=== PATIENT | female | born 1990 | race Hispanic/Latino ===

== ENCOUNTER 2016-11-02 16:40 | Emergency (ER) | payer MEDICAID ==
[2016-11-02 16:42] VITALS: BMI 33.6
[2016-11-02 16:51] VITALS: RESP 16; TEMP 98.1; O2SAT 97
--- NOTE | 2016-11-02 17:22 | ED PDOC ---
HPI: General Adult Time Seen by Provider: 11/02/16 17:00 Chief Complaint (Nursing): Shortness Of Breath Chief Complaint (Provider): SOB x 2 days History Per: Patient History/Exam Limitations: no limitations Onset/Duration Of Symptoms: Days (2 days), Intermittent Episodes Current Symptoms Are (Timing): Gone Now Severity: Mild Similar Symptoms Previously: no Recently: Treated By A Physician Additional History Per: Patient Additional Complaint(s): 26 y/o @ approx 20 weeks IUP, good PNC, presenting due to intermittent episodes of SOB x 2 days duration. States SOB comes and goes, same as SOB she felt in her previous . Able to speak in full sentences w/o accessory muscle use or SOB. States taking PNV, + FM, no complications with current or prior . Last OB US 10/27, no problems reported. Denies VB, LOF, vaginal discharge or trauma. Denies calf tenderness, swelling, recent long car trips, flights, h/o clotting disorders, blood clots, previous PE No FARLEY< syncope, vision changes, fevers, chills, palpitations, CP, pressure, abd pain,dysuria, hematuria, focal weakness or parasthesias. OB: Dr. Portillo ([place]) Past Medical History Vital Signs: Last Vital Signs Temp 98.1 F 11/02/16 16:44 Pulse 86 11/02/16 17:45 Resp 16 11/02/16 17:45 BP 126/79 11/02/16 17:45 Pulse Ox 97 11/02/16 18:04 - Medical History PMH: No Chronic Diseases - Surgical History Surgical History: No Surg Hx - Family History Family History: States: No Known Family Hx - Home Medications Home Medications: Ambulatory Orders Medication Instructions Recorded Amoxicillin 875 mg PO BID #14 tab 02/07/15 Ibuprofen [Motrin] 600 mg PO Q6H PRN #15 tab 02/07/15 Acetaminophen [Tylenol 325mg tab] 650 mg PO QID PRN #30 tab 07/16/16 Amoxicillin 875 mg PO BID #20 tablet 07/16/16 - Allergies Allergies/Adverse Reactions: Allergies Allergy/AdvReac Type Severity Reaction Status Date / Time No Known Allergies Allergy Verified 11/02/16 16:44 Review of Systems Constitutional: Negative for: Fever, Weakness, Malaise, Weight loss Eyes: Negative for: Pain, Vision Change ENT: Negative for: Ear Pain Cardiovascular: Negative for: Chest Pain, Palpitations, Edema, Light Headedness Respiratory: Positive for: Cough (intermittent dry cough), Shortness of Breath ( not currently present) Gastrointestinal: Negative for: Nausea, Vomiting, Abdominal Pain, Diarrhea Genitourinary Female: Positive for: Frequency. Negative for: Dysuria, Incontinence, Hematuria, Vaginal Discharge, Vaginal Bleeding, Pelvic Pain Skin: Negative for: Rash, Lesions, Jaundice, Bruising Neurological: Negative for: Weakness, Numbness, Incoordination, Confusion, Dizziness Physical Exam - Physical Exam Appears: Positive for: Non-toxic, No Acute Distress Head Exam: Positive for: ATRAUMATIC Skin: Positive for: Warm, Dry. Negative for: Diaphoresis, Pallor, Rash Eye Exam: Positive for: EOMI, PERRL ENT: Negative for: Nasal Congestion, Pharyngeal Erythema Neck: Positive for: Normal, Painless ROM, Supple Cardiovascular/Chest: Positive for: Regular Rate, Rhythm Respiratory: Positive for: Normal Breath Sounds. Negative for: Accessory Muscle Use, Rales, Rhonchi, Wheezing, Respiratory Distress Gastrointestinal/Abdominal: Positive for: Bowel Sounds, Soft (gravid abdomen, fundus roughly at 20 week maxine). Negative for: Tenderness, Mass, Distended Back: Negative for: L CVA Tenderness, R CVA Tenderness Extremity: Positive for: Normal ROM, Capillary Refill (<2s BL). Negative for: Tenderness, Pedal Edema, Calf Tenderness, Swelling Neurologic/Psych: Positive for: Alert, Oriented. Negative for: Motor/Sensory Deficits, Facial Droop - ECG O2 Sat by Pulse Oximetry: 97 - Progress ED Course And Treament: Intermittent SOB during EKG UA OB TVUS ordered but patient declined due to increased length of today's ER stay , opted to follow up with her regular OB, stating she ''felt fine'' PE: benign, no calf tenderness, swelling, erythema. Re-evaluation Time: 18:21 Condition: Re-examined, Improved Disposition - Clinical Impression Clinical Impression: Dyspnea, - Disposition [facility] Disposition Time: 18:23 Condition: FAIR Instructions: (ED)
[2016-11-02 18:18] VITALS: BP 126/79; PULSE 86
[2016-11-02 18:31] LABS: RBC URINE 4 /hpf (0-3); URINE BACTERIA RARE (<OCC); URINE BILIRUBIN NEGATIVE (NEGATIVE); URINE BLOOD NEGATIVE (NEGATIVE); URINE COLOR YELLOW (YELLOW); URINE GLUCOSE (UA) NEG (Normal); URINE KETONE 20 mg/dL (NEGATIVE); URINE LEUKOCYTE ESTERASE MOD Leu/uL (Negative); URINE PROTEIN NEGATIVE (NEGATIVE); URINE UROBILINOGEN 0.2-1.0 mg/dL (0.2-1.0); WBC URINE 16 /hpf (0-5)
== END 2016-11-02 18:13 | disposition home or self-care (01) ==
LOC: H.ER 16:40
DX: R06.02 Shortness of breath (principal); Z33.1 Pregnant state, incidental; Z3A.20 20 weeks gestation of pregnancy

== ENCOUNTER 2017-08-31 16:39 | Emergency (ER) | payer MEDICAID ==
[2017-08-31 16:39] VITALS: BMI 33.6
--- NOTE | 2017-08-31 18:50 | CT ---
PROCEDURE: CT scan of the brain dated 08/31/2017. HISTORY: Dizziness. Headache. Progressively worsening. COMPARISON: No prior study available for comparison TECHNIQUE: Axial computed tomography images were obtained through the head/brain without intravenous contrast. Radiation dose: Total exam DLP = 769.72 mGy-cm. This CT exam was performed using one or more of the following dose reduction techniques: Automated exposure control, adjustment of the mA and/or kV according to patient size, and/or use of iterative reconstruction technique. FINDINGS: HEMORRHAGE: No acute parenchymal, subarachnoid or extra-axial hemorrhage. BRAIN: No evidence of large acute infarct. No obvious parenchymal nor extra-axial mass or collection seen on this noncontrast study. Ventricular and sulcal size are within range of normal for this patient's stated age. VENTRICLES: There is mild asymmetry of the lateral ventricles left-sided which is smaller than the right felt to represent a anatomic variation. No obstructive Hydrocephalus. CALVARIUM: Calvarium intact. PARANASAL SINUSES: Frontal sinuses are slightly underpneumatized/hypoplastic. Remaining visualized paranasal sinuses well-developed and currently well-aerated. MASTOID AIR CELLS: Unremarkable as visualized. No inflammatory changes. OTHER FINDINGS: None. IMPRESSION: No acute intracranial hemorrhage.
[2017-08-31 19:12] LABS: BASO % 0.3 % (0.0-2.0); EOS # 0.1 K/uL (0.0-0.7); EOS % 0.7 % (0.0-4.0); HEMOGLOBIN 12.9 g/dL (12.0-16.0); LYMPH # 3.7 K/uL (1.0-4.3); MEAN CELL VOLUME 89.3 fl (81.0-99.0); MEAN CORPUSCULAR HEMOGLOBIN 29.7 pg (27.0-31.0); MEAN CORPUSCULAR HGB CONC 33.2 g/dL (33.0-37.0); MEAN PLATELET VOLUME 8.7 fl (7.2-11.7); MONO # 0.5 K/uL (0.0-0.8); MONO % 4.9 % (0.0-10.0); NEUT # 6.5 K/uL (1.8-7.0); NEUT % 60.1 % (50.0-75.0); NRBC % 0.1 % (0.0-0.0); RBC 4.35 Mil/uL (3.80-5.20); WHITE BLOOD COUNT 10.8 K/uL (4.8-10.8)
[2017-08-31 19:27] LABS: ALB/GLOB RATIO 1.3 (1.0-2.1); ALBUMIN 4.1 g/dL (3.5-5.0); ALT/SGPT 28 U/L (9-52); AST/SGOT 27 U/L (14-36); BLOOD UREA NITROGEN 11 mg/dl (7-17); CALCIUM 9.3 mg/dL (8.4-10.2); GFR AFRICAN-AMERICAN > 60; GFR NON-AFRICAN AMERICAN > 60
--- NOTE | 2017-08-31 19:27 | ED PDOC ---
HPI: Chest Pain Time Seen by Provider: 08/31/17 17:01 Chief Complaint (Nursing): Chest Pain Chief Complaint (Provider): Chest Pain History Per: Patient History/Exam Limitations: no limitations Current Symptoms Are (Timing): Still Present Additional Complaint(s): 27 year old female presents to the emergency department with a complaint of a weakness and lightheadedness for 2 weeks. Associated with a non vertiginous dizziness and feeling like she is not really there with difficulty concentrating. Patient also reports every other day she has a headache and chest pain which she occasionally experiences but noticed it has been more often within the last few weeks. States she had an episode of dry mouth today. Patient is concerned symptoms persistent because she initially thought it was because of fatigue due to 5 month at home. Denies focal weakness, blurry vision, and any difficulty with gait or speech. PMD: Dr. Sandie Stevenson MD (First appointment in 10 days) Past Medical History Reviewed: Historical Data, Nursing Documentation, Vital Signs Vital Signs: Last Vital Signs Temp 98.5 F 08/31/17 21:25 Pulse 83 08/31/17 21:25 Resp 16 08/31/17 21:25 BP 117/66 08/31/17 21:25 Pulse Ox 97 08/31/17 21:25 - Medical History PMH: No Chronic Diseases - Surgical History Surgical History: No Surg Hx - Family History Family History: States: CAD (Father who had open heart surgery at 44) Other Family History: mother with submental illness - Social History Current smoker - smoking cessation education provided: No Alcohol: None Drugs: Denies - Home Medications Home Medications: Ambulatory Orders Medication Instructions Recorded Amoxicillin 875 mg PO BID #14 tab 02/07/15 Ibuprofen [Motrin] 600 mg PO Q6H PRN #15 tab 02/07/15 Acetaminophen [Tylenol 325mg tab] 650 mg PO QID PRN #30 tab 07/16/16 Amoxicillin 875 mg PO BID #20 tablet 07/16/16 - Allergies Allergies/Adverse Reactions: Allergies Allergy/AdvReac Type Severity Reaction Status Date / Time No Known Allergies Allergy Verified 11/02/16 16:44 Review of Systems ROS Statement: Except As Marked, All Systems Reviewed And Found Negative (As per HPI, otherwise negative) Constitutional: Positive for: Other (Lightheadedness) Eyes: Negative for: Vision Change (blurry) Cardiovascular: Positive for: Chest Pain Neurological: Positive for: Headache, Dizziness (non vertiginous dizziness ), Other (Difficulty concentrating). Negative for: Weakness (focal), Change in Speech (or change in gait) Physical Exam - Reviewed Nursing Documentation Reviewed: Yes Vital Signs Reviewed: Yes - Physical Exam Appears: Positive for: Non-toxic, No Acute Distress Head Exam: Positive for: ATRAUMATIC, NORMOCEPHALIC Skin: Positive for: Warm, Dry Eye Exam: Positive for: EOMI, PERRL ENT: Negative for: Pharyngeal Erythema, Tonsillar Exudate Neck: Positive for: Painless ROM, Supple Cardiovascular/Chest: Positive for: Regular Rate, Rhythm, Chest Non Tender. Negative for: Murmur Respiratory: Positive for: Normal Breath Sounds. Negative for: Respiratory Distress Gastrointestinal/Abdominal: Positive for: Soft. Negative for: Tenderness Back: Positive for: Normal Inspection. Negative for: Decreased ROM Extremity: Positive for: Normal ROM. Negative for: Deformity Lymphatic: Negative for: Adenopathy Neurologic/Psych: Positive for: Alert, portable trackman II-XII (intact), Oriented (x3). Negative for: Motor/Sensory Deficits - Laboratory Results Result Diagrams: 08/31/17 19:00 08/31/17 19:00 - ECG ECG Rhythm: Positive for: Normal QRS, Normal ST Segment, Sinus Rhythm (77), Nonspecific Changes. Negative for: ST/T Changes O2 Sat by Pulse Oximetry: 99 (RA) Pulse Ox Interpretation: Normal Medical Decision Making Medical Decision Making: Time: 1800 Initial Impression: Weakness. Differential include but not limited to anemia, electrolyte abnormality, dehydration, hypothyroid, fatigue, and stress. Initial Plan: --Chemistry and lab work ordered --EKG --Infection [place] --Reevaluation Time: 1847 --Head CT FINDINGS: HEMORRHAGE: No acute parenchymal, subarachnoid or extra-axial hemorrhage. BRAIN: No evidence or large acute infarct. No obvious parenchymal nor extra-axial mass or collection seen on this noncontrast study. Ventricular and sulcal size are within range of normal for this patient's stated age. VENTRICLES: There is mild asymmetry of the lateral ventricles left-sided which is smaller than the right felt to represent a anatomic variation. No obstructive hydrocephalus. CALVARIUM: Calvarium intact. PARANASAL SINUSES: Frontal sinuses are slightly underpneumatized/hypoplastic. Remaining visualized paranasal sinuses well-developed and currently well-aerated. MASTOID AIR CELLS: Unremarkable as visualized. No inflammatory changes. OTHER FINDINGS: None. IMPRESSION: No acute intracranial hemorrhage. Labs unremarkable. DW pt findings and plan of care. Stable for discharge Scribe Attestation: Documented by Melanie Pinto, acting as a scribe for Estelal Wood MD. Provider Scribe Attestation: All medical record entries made by the Scribe were at my direction and personally dictated by me. I have reviewed the chart and agree that the record accurately reflects my personal performance of the history, physical exam, medical decision making, and the department course for this patient. I have also personally directed, reviewed, and agree with the discharge instructions and disposition. Disposition - Clinical Impression Clinical Impression: Weakness - Disposition Referrals: Sandie Stevenson MD [Primary Care Provider] - 08/31/17 (CALL THE OFFICE AND LET THEM KNOW YOU KNOW WERE A PATIENT IN THE ER AND YOU NEED A MORE URGENT APPOINTMENT) Disposition: Routine/Home Disposition Time: 22:00 Condition: STABLE Additional Instructions: REST AND DRINK PLENTY OF FLUIDS. TAKE A MULTIVITAMIN DAILY AND EAT AT LEAST 3 SQUARE MEALS A DAY. FOLLOW UP WITH DR STEVENSON SOON POSSIBLE FOR FURTHER EVALUATION. Instructions: Weakness (ED) Forms: [employer] ([place])
[2017-08-31 22:11] VITALS: BP 117/66; PULSE 83; RESP 16; TEMP 98.5
--- NOTE | 2017-09-01 10:36 | CARD ---
APPROVED REPORT EKG Measurement Heart [id number] <Conclusion> Normal sinus rhythm Normal ECG
[2017-09-01 14:56] VITALS: O2SAT 99
== END 2017-08-31 21:35 | disposition home or self-care (01) ==
LOC: H.ER 16:39
DX: R53.1 Weakness (principal)

== ENCOUNTER 2017-11-03 19:31 | Emergency (ER) | payer MEDICAID, OTHER ==
[2017-11-03 19:31] VITALS: BMI 33.6
--- NOTE | 2017-11-03 20:17 | ED PDOC ---
HPI: Chest Pain Chief Complaint (Provider): Chest pain History Per: Patient History/Exam Limitations: no limitations Onset/Duration Of Symptoms: Days, Intermittent Episodes Current Symptoms Are (Timing): Still Present Context: Other (Carrying her children) Associated Symptoms: Other (R/jaw pain) Additional History Per: Patient <Nicolás Rich - Last Filed: 11/03/17 22:12> <Shabnam Chang - Last Filed: 11/05/17 12:30> Time Seen by Provider: 11/03/17 19:52 Chief Complaint (Nursing): Chest Pain Additional Complaint(s): 27 y/o F with PMhx of migraines presents to ED with c/o CP, intermittent, localized to left precordial area for the past few month. Patient presented to ED 2 months ago with similar complains. She states that today she also had a R/ side jaw pain that is resolved. Patient admits feeling anxious at time and overwhelmed because she has 2 young kids and studies at night. She sleeps 6 hours per day and dosnt have good eating habits in term of hours. CP is intermittent, moderate. Denies SOB, vomiting, nausea, abd pain. Palpitations occasionally with exertion. She is not taking any medications besides PRN Aleve for Migraines. Regular menses. Denies domestic violence. (Nicolás Rich) Supervising Attending Note - Supervising Attending Note The Documented history was done by the: Physician Supervisor P[employer], Attending Physician The documented physical exam was done by the: Physician Supervisor [employer], Attending Physician The documented procedures were done by the: Physician Supervisor [employer], Attending Physician - Attestation: I have personally seen and examined this patient.: Yes I have fully participated in the care of the patient.: Yes I have reviewed all pertinent clinical information: Yes <Shabnam Chang - Last Filed: 11/05/17 12:30> Past Medical History - Medical History PMH: Migraine - Family History Family History: States: CAD (Father who had open heart surgery at 44) - Living Arrangements Living Arrangements: With Family - Social History Current smoker - smoking cessation education provided: No <Nicolás Rich - Last Filed: 11/03/17 22:12> Reviewed: Historical Data, Nursing Documentation, Vital Signs - Surgical History Surgical History: No Surg Hx <Shabnam Chang - Last Filed: 11/05/17 12:30> Vital Signs: Last Vital Signs Temp 98.0 F 11/03/17 22:17 Pulse 78 11/03/17 22:17 Resp 16 11/03/17 22:17 BP 122/67 11/03/17 22:17 Pulse Ox 98 11/03/17 22:17 - Home Medications Home Medications: Ambulatory Orders Medication Instructions Recorded Amoxicillin 875 mg PO BID #14 tab 02/07/15 Ibuprofen [Motrin] 600 mg PO Q6H PRN #15 tab 02/07/15 Acetaminophen [Tylenol 325mg tab] 650 mg PO QID PRN #30 tab 07/16/16 Amoxicillin 875 mg PO BID #20 tablet 07/16/16 - Allergies Allergies/Adverse Reactions: Allergies Allergy/AdvReac Type Severity Reaction Status Date / Time No Known Allergies Allergy Verified 11/02/16 16:44 SHY Risk Score for UA/NSTEMI - SHY Risk Score Age > 64: NO 3 or more CAD Risk Factors: NO Known CAD (Stenosis greater than 50%): NO Aspirin use in past 7 days: NO Severe Angina: NO EKG ST changes greater than 0.5mm: NO Positive Cardiac Marker: NO SHY Score: 0 Risk %: 5% <Nicolás Rich - Last Filed: 11/03/17 22:12> Wells Criteria for PE - Wells Criteria for Pulmonary Embolism Clinical Signs and Symptoms of DVT: No P.E is #1 Diagnosis, or Equally Likely: No Heart Rate >100: No Immobilization at least 3 days;Surgery previous 4 weeks: No Previous, objectively diagnosed PE or DVT: No Hemoptysis: No Malignancy w/treatment within 6 months, or palliative: No Total Score: 0 <Nicolás Rich - Last Filed: 11/03/17 22:12> Review of Systems ROS Statement: Except As Marked, All Systems Reviewed And Found Negative Cardiovascular: Positive for: Chest Pain Musculoskeletal: Positive for: Other (jaw pain) Psych: Positive for: Anxiety <Nicolás Rich - Last Filed: 11/03/17 22:12> ROS Statement: Except As Marked, All Systems Reviewed And Found Negative <Shabnam Chang - Last Filed: 11/05/17 12:30> Physical Exam - Physical Exam Appears: Positive for: Well, Non-toxic, No Acute Distress Skin: Positive for: Normal Color, Warm Eye Exam: Positive for: PERRL ENT: Negative for: Nasal Congestion Neck: Positive for: Painless ROM Cardiovascular/Chest: Negative for: Edema, Gallop, Murmur Respiratory: Positive for: Normal Breath Sounds. Negative for: Decreased Breath Sounds, Crackles, Rales, Stridor, Wheezing, Respiratory Distress Gastrointestinal/Abdominal: Positive for: Soft. Negative for: Tenderness, Distended, Guarding, Rebound Extremity: Negative for: Tenderness, Pedal Edema, Calf Tenderness, Capillary Refill Neurologic/Psych: Positive for: Alert, Oriented. Negative for: Motor/Sensory Deficits, Facial Droop <Nicolás Rich - Last Filed: 11/03/17 22:12> - Reviewed Nursing Documentation Reviewed: Yes Vital Signs Reviewed: Yes <Shabnam Chang - Last Filed: 11/05/17 12:30> - Laboratory Results Result Diagrams: 11/03/17 21:10 11/03/17 21:10 - ECG O2 Sat by Pulse Oximetry: 99 <Nicolás Rich - Last Filed: 11/03/17 22:12> - Laboratory Results Result Diagrams: 11/03/17 21:10 11/03/17 21:10 <Shabnam Chang - Last Filed: 11/05/17 12:30> - Progress ED Course And Treament: Blood work unremarkable including normal Troponin EKG: sinus arrhythmia CXR no active disease pending official report Patient clinically stable VS WNL Pain is intermittent and denies CP at this time' (Nicolás Rich) Medical Decision Making <Nicolás Rich - Last Filed: 11/03/17 22:12> <Shabnam Chang - Last Filed: 11/05/17 12:30> Medical Decision Making: Atypical Chest pain PERC score 0 R/O ACS EKG no acute ischemic changes F/U blood work CXR Poss anxiety vs MSK? (Nicolás Rich) Disposition - Patient ED Disposition Is Patient to be Admitted: No - Disposition Disposition: Routine/Home Disposition Time: 22:10 <Nicolás Rich - Last Filed: 11/03/17 22:12> - Patient ED Disposition Is Patient to be Admitted: No Doctor Will See Patient In The: Office Counseled Patient/Family Regarding: Studies Performed, Diagnosis, Need For Followup <Shabnam Chang - Last Filed: 11/05/17 12:30> - Clinical Impression Clinical Impression: Chest pain - Disposition Condition: GOOD Additional Instructions: F/U with your PMD as outpatient for further work up if needed Return to ED if persistent or worsening CP, SOB or any other concerns that you may have. Instructions: Chest Pain That Is Not Caused by the Heart (DC) Print Language: DOMINICAN
[2017-11-03 21:21] LABS: BASO % 0.3 % (0.0-2.0); EOS # 0.1 K/uL (0.0-0.7); EOS % 0.9 % (0.0-4.0); HEMOGLOBIN 12.9 g/dL (12.0-16.0); LYMPH # 3.7 K/uL (1.0-4.3); LYMPH % 34.6 % (20.0-40.0); MEAN CELL VOLUME 88.6 fl (81.0-99.0); MEAN CORPUSCULAR HEMOGLOBIN 30.7 pg (27.0-31.0); MEAN CORPUSCULAR HGB CONC 34.6 g/dL (33.0-37.0); MONO # 0.6 K/uL (0.0-0.8); MONO % 5.9 % (0.0-10.0); NEUT # 6.3 K/uL (1.8-7.0); NEUT % 58.3 % (50.0-75.0); NRBC % 0.1 % (0.0-0.0); RBC 4.21 Mil/uL (3.80-5.20); RED CELL DISTRIBUTION WIDTH 13.4 % (11.5-14.5); WHITE BLOOD COUNT 10.7 K/uL (4.8-10.8)
[2017-11-03 21:29] LABS: ALB/GLOB RATIO 1.2 (1.0-2.1); ALBUMIN 3.8 g/dL (3.5-5.0); ALT/SGPT 34 U/L (9-52); AST/SGOT 23 U/L (14-36); BLOOD UREA NITROGEN 17 mg/dl (7-17); GFR AFRICAN-AMERICAN > 60; GFR NON-AFRICAN AMERICAN > 60
[2017-11-03 22:18] VITALS: BP 122/67; PULSE 78; RESP 16; TEMP 98; O2SAT 98
--- NOTE | 2017-11-04 09:05 | RAD ---
HISTORY: CP COMPARISON: Chest radiograph dated 08/06/2013. FINDINGS: LUNGS: No active pulmonary disease. PLEURA: No significant pleural effusion identified, no pneumothorax apparent. CARDIOVASCULAR: Normal. OSSEOUS STRUCTURES: No significant abnormalities. VISUALIZED UPPER ABDOMEN: Normal. OTHER FINDINGS: None. IMPRESSION: No active disease.
== END 2017-11-03 22:44 | disposition home or self-care (01) ==
LOC: H.ER 19:31
DX: R07.89 Other chest pain (principal)

== ENCOUNTER 2018-06-28 20:19 | Emergency (ER) | payer OTHER ==
[2018-06-28 20:19] VITALS: BMI 33.6
[2018-06-28 20:48] VITALS: BP 107/69; PULSE 96; RESP 16; TEMP 98.3; O2SAT 98
[2018-06-28] MEDS ORDERED: Sodium Chloride 0.9% 1,000 ML IV STA (21:04)
--- NOTE | 2018-06-28 21:07 | ED PDOC ---
HPI: Headache Time Seen by Provider: 06/28/18 20:52 Chief Complaint (Nursing): Dizziness/Lightheaded History Per: Patient Onset/Duration Of Symptoms: Days (1) Current Symptoms Are (Timing): Still Present Severity: Moderate Quality: Sharp Preceeding Symptoms: Visual Disturbances, Known Migraine Symptoms Associated Symptoms: Blurred Vision. denies: Nausea, Vomiting, Extremity Weakness Additional Complaint(s): Right sided headache assoc with blurry vision left eye and seeing light flashes right eye earlier today. Visual sxs have improved but headache persists. C/o numbness left middle finger earlier today. Denies seizure activity. Past Medical History Vital Signs: Last Vital Signs Temp 98.3 F 06/28/18 20:45 Pulse 96 H 06/28/18 20:45 Resp 16 06/28/18 20:45 BP 107/69 06/28/18 20:45 Pulse Ox 98 06/28/18 20:45 - Medical History PMH: Migraine, Seizures - Family History Family History: States: CAD (Father who had open heart surgery at 44) - Home Medications Home Medications: Ambulatory Orders Medication Instructions Recorded Amoxicillin 875 mg PO BID #14 tab 02/07/15 Ibuprofen [Motrin] 600 mg PO Q6H PRN #15 tab 02/07/15 Acetaminophen [Tylenol 325mg tab] 650 mg PO QID PRN #30 tab 07/16/16 Amoxicillin 875 mg PO BID #20 tablet 07/16/16 Naproxen [Naprosyn] 500 mg PO Q12H #20 tab 06/28/18 - Allergies Allergies/Adverse Reactions: Allergies Allergy/AdvReac Type Severity Reaction Status Date / Time No Known Allergies Allergy Verified 06/28/18 20:44 Review of Systems ROS Statement: Except As Marked, All Systems Reviewed And Found Negative Neurological: Positive for: Headache Physical Exam - Reviewed Nursing Documentation Reviewed: Yes Vital Signs Reviewed: Yes - Physical Exam Appears: Positive for: Non-toxic, No Acute Distress Head Exam: Positive for: ATRAUMATIC, NORMAL INSPECTION, NORMOCEPHALIC Skin: Positive for: Normal Color, Warm, DRY Eye Exam: Positive for: EOMI, Normal appearance, PERRL ENT: Positive for: Normal ENT Inspection Neck: Positive for: Normal, Painless ROM Cardiovascular/Chest: Positive for: Regular Rate, Rhythm Respiratory: Positive for: CNT, Normal Breath Sounds Gastrointestinal/Abdominal: Positive for: Normal Exam, Soft Back: Positive for: Normal Inspection Extremity: Positive for: Normal ROM Neurologic/Psych: Positive for: Alert, Oriented. Negative for: Motor/Sensory Deficits - ECG O2 Sat by Pulse Oximetry: 98 Disposition - Clinical Impression Clinical Impression: Migraine headache - Patient ED Disposition Is Patient to be Admitted: No Counseled Patient/Family Regarding: Studies Performed, Diagnosis, Need For Followup, Rx Given - Disposition Referrals: Wyatt Coreas MD [Staff Provider] - Disposition: Routine/Home Disposition Time: 23:01 Condition: FAIR Prescriptions: Naproxen [Naprosyn] 500 mg PO Q12H #20 tab Instructions: Migraine Headache (DC) Forms: [employer] (Italian)
--- NOTE | 2018-06-29 11:22 | CT ---
Date of service: 06/28/2018 PROCEDURE: CT HEAD WITHOUT CONTRAST. HISTORY: headcahe COMPARISON: Noncontrast head CT 08/31/2017. TECHNIQUE: Axial computed tomography images were obtained through the head/brain without intravenous contrast. Radiation dose: Total exam DLP = 774.95 mGy-cm. This CT exam was performed using one or more of the following dose reduction techniques: Automated exposure control, adjustment of the mA and/or kV according to patient size, and/or use of iterative reconstruction technique. FINDINGS: HEMORRHAGE: No intracranial hemorrhage. BRAIN: Normal [place]-white matter differentiation and density are appreciated throughout the cerebrum and cerebellum with the brainstem appearing unremarkable as well. There is no mass effect. There is no suspicious extra-axial fluid collection and the midline brain anatomy appears diffusely unremarkable. VENTRICLES: Unremarkable. No hydrocephalus. CALVARIUM: Unremarkable. PARANASAL SINUSES: Unremarkable as visualized. No significant inflammatory changes. MASTOID AIR CELLS: Unremarkable as visualized. No inflammatory changes. OTHER FINDINGS: None. IMPRESSION: Unremarkable unenhanced CT of the Head. Concordant preliminary report from Saeed, 06/28/2018 10:40 p.m..
== END 2018-06-28 23:21 | disposition home or self-care (01) ==
LOC: H.ER 20:19
DX: G43.909 Migraine, unspecified, not intractable, without status migrainosus (principal)
CPT/HCPCS: 70450; 96374; 99283; J1885; J7030

== ENCOUNTER 2018-08-01 15:49 | Emergency (ER) | payer OTHER ==
[2018-08-01 15:49] VITALS: BMI 33.6
[2018-08-01] MEDS ORDERED: Alum-Mag Hydrox-Simethicone Susp (30 mL) PO STA (16:38)
[2018-08-01] MEDS ORDERED: Sodium Chloride 0.9% 1,000 ML IV STA (16:39)
[2018-08-01] MEDS ORDERED: Alum-Mag Hydrox-Simethicone Susp (30 mL) ONE (16:48)
--- NOTE | 2018-08-01 16:57 | ED PDOC ---
HPI: Abdomen Time Seen by Provider: 08/01/18 16:20 Chief Complaint (Nursing): Chest Pain Chief Complaint (Provider): Abdominal Pain History Per: Patient History/Exam Limitations: no limitations Onset/Duration Of Symptoms: Hrs (x6) Current Symptoms Are (Timing): Still Present Location Of Pain/Discomfort: LUQ Quality Of Discomfort: Gas Associated Symptoms: Nausea, Vomiting, Loss Of Appetite. denies: Diarrhea Alleviating Factors: None Last Bowel Movement: Yesterday Additional Complaint(s): 28 year old female who was recently diagnosed with a pituitary tumor presents to the ED with abdominal pain and vomiting onset 11 am. Patient states that left upper quadrant pain feels like gas. She took Tums and [place] with no relief. Patient has had x1 episode of vomiting after eating a piece of toast with peanut butter. Otherwise, she has no appetite. Patient has not had a bowel movement since yesterday. Patient has nausea, but denies diarrhea. She was recently diagnosed with a pituitary tumor and is currently undergoing workup. Her first endocrinology appointment on 08/07/18. Patient has not started any medications for tumor. PMD: Sandie Gates Abnormal Vaginal Bleeding: No Past Medical History Reviewed: Historical Data, Nursing Documentation, Vital Signs Vital Signs: Last Vital Signs Temp 98.2 F 08/01/18 16:05 Pulse 104 H 08/01/18 16:05 Resp 17 08/01/18 16:05 BP 124/72 08/01/18 16:05 Pulse Ox 98 08/01/18 16:05 - Medical History PMH: Migraine, Seizures Other PMH: pituitary tumor - Surgical History Surgical History: No Surg Hx - Family History Family History: States: CAD (Father who had open heart surgery at 44) - Social History Current smoker - smoking cessation education provided: No Ex-Smoker (has not smoked in the last 12 months): No Alcohol: None Drugs: Denies - Home Medications Home Medications: Ambulatory Orders Medication Instructions Recorded Amoxicillin 875 mg PO BID #14 tab 02/07/15 Ibuprofen [Motrin] 600 mg PO Q6H PRN #15 tab 02/07/15 Acetaminophen [Tylenol 325mg tab] 650 mg PO QID PRN #30 tab 07/16/16 Amoxicillin 875 mg PO BID #20 tablet 07/16/16 Naproxen [Naprosyn] 500 mg PO Q12H #20 tab 06/28/18 Ibuprofen [Motrin Tab] 600 mg PO Q8 PRN #30 tab 08/01/18 Omeprazole Magnesium [Prilosec Otc] 20 mg PO DAILY #30 tcp 08/01/18 Ondansetron ODT [Zofran ODT] 1 odt PO Q6 PRN #20 odt 08/01/18 - Allergies Allergies/Adverse Reactions: Allergies Allergy/AdvReac Type Severity Reaction Status Date / Time No Known Allergies Allergy Verified 08/01/18 16:09 Review of Systems ROS Statement: Except As Marked, All Systems Reviewed And Found Negative Gastrointestinal: Positive for: Nausea, Vomiting, Abdominal Pain. Negative for: Diarrhea Physical Exam - Reviewed Nursing Documentation Reviewed: Yes Vital Signs Reviewed: Yes - Physical Exam Appears: Positive for: Well, No Acute Distress Head Exam: Positive for: ATRAUMATIC, NORMOCEPHALIC Skin: Positive for: Warm, Dry Eye Exam: Positive for: EOMI, PERRL ENT: Negative for: Pharyngeal Erythema, Tonsillar Exudate Neck: Positive for: Painless ROM, Supple Cardiovascular/Chest: Positive for: Regular Rate, Rhythm. Negative for: Murmur Respiratory: Positive for: Normal Breath Sounds. Negative for: Respiratory Distress Gastrointestinal/Abdominal: Positive for: Soft, Tenderness (mild LUQ ). Negative for: Mass, Distended, Guarding, Rebound Back: Positive for: Normal Inspection. Negative for: L CVA Tenderness, R CVA Tenderness, Decreased ROM Extremity: Positive for: Normal ROM. Negative for: Deformity Lymphatic: Negative for: Adenopathy Neurologic/Psych: Positive for: Alert. Negative for: Motor/Sensory Deficits - Laboratory Results Result Diagrams: 08/01/18 17:00 08/01/18 17:00 - ECG O2 Sat by Pulse Oximetry: 98 (RA) Pulse Ox Interpretation: Normal Medical Decision Making Medical Decision Making: Time: 1624 Initial Impression: Abdominal pain Differential diagnoses include but are not limited to: Gastritis, peptic ulcer disease, pancreatisi, enteritis, and dyspepsia Initial Plan: --EKG --CMP --Lipase --Magnesium --Phosphorus --U preg --U dip --CBC with differentials --Obstructive series --Lidocaine 10 ml PO --Maalox plus 30 ml PO --NS --Pepcid 40 ml PO --Zofran 4 mg IVP Labs demonstrate elevated LFTs. US ordered Obstructive series NSBGP. No free air. History UPPER ABD PAIN, ELEVATED LFT'S. Comparison None. Technique Sonographic evaluation of the right upper quadrant of the abdomen. Findings Liver Measures 17.4 cm in length. Normal echogenicity of the liver parenchyma. No mass. No intrahepatic bile duct dilatation. Gallbladder Multiple mobile shadowing foci are seen. Gallbladder wall measures 3 mm. Common bile duct Measures 2.6 mm. No stones. No dilatation. Pancreas Unremarkable as visualized. No mass. No ductal dilatation. Right kidney Measures 11.5 x 5.1 x 4.5 cm in length. Normal echogenicity. No calculus, mass, or hydronephrosis. Aorta No aneurysmal dilatation. IVC Unremarkable. Other Findings None. Impression Cholelithiasis. Electronically signed on Aug 01, 2018 8:10:51 PM EST by: Avel Parada M.D., OSCAR Certified By [employer] Fellowship Trained MRI and CT Specialist 8p Pt feels better. DW pt findings and plan of care. Scribe Attestation: Documented by Bailey Tariq, acting as a scribe for Estella Wood MD. Provider Scribe Attestation: All medical record entries made by the Scribe were at my direction and personally dictated by me. I have reviewed the chart and agree that the record accurately reflects my personal performance of the history, physical exam, medical decision making, and the department course for this patient. I have also personally directed, reviewed, and agree with the discharge instructions and disposition. Disposition - Clinical Impression Clinical Impression: Abdominal pain, Cholelithiasis Counseled Patient/Family Regarding: Studies Performed, Diagnosis, Need For Followup - Disposition Referrals: Sandie Gates MD [Family Provider] - () Disposition: Routine/Home Disposition Time: 20:23 Condition: IMPROVED Additional Instructions: START A DIARY ON HOW OFTEN AND HOW LONG YOU GET THE PAINS FOLLOWUP WITH DR GATES IN 1-2 WEEKS FOR REEVALUATION FOLLOWUP SCHEDULED WITH ALL YOUR OTHER SPECIALISTS. Prescriptions: Ibuprofen [Motrin Tab] 600 mg PO Q8 PRN #30 tab PRN Reason: Pain, Moderate (4-7) Omeprazole Magnesium [Prilosec Otc] 20 mg PO DAILY #30 tcp Ondansetron ODT [Zofran ODT] 1 odt PO Q6 PRN #20 odt PRN Reason: Nausea/Vomiting Instructions: Gallstones (DC), Acute Abdomen (Belly Pain), Adult (DC)
[2018-08-01 17:12] LABS: BASO # 0.1 K/uL (0.0-0.2); BASO % 0.3 % (0.0-2.0); EOS % 0.1 % (0.0-4.0); LYMPH # 1.6 K/uL (1.0-4.3); LYMPH % 10.8 % (20.0-40.0); MEAN CORPUSCULAR HEMOGLOBIN 29.2 pg (27.0-31.0); MEAN CORPUSCULAR HGB CONC 32.8 g/dL (33.0-37.0); MEAN PLATELET VOLUME 8.3 fl (7.2-11.7); MONO # 1.1 K/uL (0.0-0.8); MONO % 7.1 % (0.0-10.0); NEUT # 12.3 K/uL (1.8-7.0); NEUT % 81.7 % (50.0-75.0); RBC 4.45 Mil/uL (3.80-5.20); RED CELL DISTRIBUTION WIDTH 12.9 % (11.5-14.5)
[2018-08-01 17:23] LABS: ALB/GLOB RATIO 1.3 (1.0-2.1); ALBUMIN 4.3 g/dL (3.5-5.0); ALT/SGPT 212 U/L (9-52); AST/SGOT 350 U/L (14-36); BLOOD UREA NITROGEN 12 mg/dl (7-17); CALCIUM 9.7 mg/dL (8.4-10.2); GFR NON-AFRICAN AMERICAN > 60; LIPASE 79 U/L (23-300)
[2018-08-01 20:45] VITALS: BP 108/69; PULSE 93; RESP 15; TEMP 98.1; O2SAT 100
--- NOTE | 2018-08-02 08:41 | CARD ---
APPROVED REPORT Date of service: 08/01/2018 EKG Measurement Heart [id number] <Conclusion> Sinus tachycardia Otherwise normal ECG
--- NOTE | 2018-08-02 09:41 | US ---
Date of service: 08/01/2018 HISTORY: upper abd pain elevated LFTS COMPARISON: None. TECHNIQUE: Sonographic evaluation of the right upper quadrant of the abdomen. FINDINGS: LIVER: Measures cm in length. Normal echogenicity of the liver parenchyma. 17.4 GALLBLADDER: Cholelithiasis. Minimal mural thickening up to 4 mm.. Trace pericholecystic fluid. Negative sonographic Yang sign. Findings concerning but equivocal for acute cholecystitis. If clinically warranted consider further evaluation with radionuclide hepatobiliary scan. COMMON BILE DUCT: Measures mm. No stones. No dilatation. PANCREAS: 3 RIGHT KIDNEY: Measures 11.5 cm in length. Normal echogenicity. No calculus, mass, or hydronephrosis. AORTA: No aneurysmal dilatation. IVC: Unremarkable. OTHER FINDINGS: None . IMPRESSION: Mild thickening of gallbladder wall. Cholelithiasis. Trace pericholecystic fluid. Negative sonographic Yang sign pocket. Findings concerning but equivocal for acute cholecystitis. If clinically warranted consider further evaluation with radionuclide hepatobiliary scan. The preliminary findings for this examination were reported by [facility] at time. There is discordance of this report with the preliminary findings. Finding of pericholecystic fluid was not described in the preliminary report of this examination. Gallbladder wall thickening was not described in the preliminary report of this examination. Concern for acute cholecystitis was not described in the preliminary report of this examination.
--- NOTE | 2018-08-02 12:03 | RAD ---
Date of service: to 08/01/2018 PROCEDURE: Radiographs of the chest and abdomen (obstructive series) HISTORY: abd pain r/o sbo COMPARISON: No prior. TECHNIQUE: AP radiograph of the chest, with upright and supine radiographs of the abdomen. FINDINGS: CHEST: Lungs: Clear. Cardiovascular: Normal size heart. No pulmonary vascular congestion. No aortic atherosclerotic calcification present Pleura: No pleural fluid. No pneumothorax. Other findings: None. ABDOMEN AND PELVIS: Bowel: Unremarkable bowel gas pattern. No evidence of mechanical obstruction. Free air: None. Bones: Unremarkable. Other findings: None. IMPRESSION: Unremarkable radiographs of chest and abdomen. No evidence of mechanical bowel obstruction.
== END 2018-08-01 20:45 | disposition home or self-care (01) ==
LOC: H.ER 15:49
DX: K80.20 Calculus of gallbladder without cholecystitis without obstruction (principal); R10.12 Left upper quadrant pain; Z79.899 Other long term (current) drug therapy
CPT/HCPCS: 74022; 76705; 80053; 81025; 83690; 83735; 84100; 85025; 93005; 96374; 99284; J1885; J7030

== ENCOUNTER 2018-08-02 15:32 | Inpatient (IN) | payer OTHER ==
[2018-08-02 15:33] VITALS: BMI 33.6
--- NOTE | 2018-08-02 16:14 | ED PDOC ---
HPI: Abdomen Time Seen by Provider: 08/02/18 16:00 Chief Complaint (Nursing): GI Problem Chief Complaint (Provider): Abdominal pain History Per: Patient History/Exam Limitations: no limitations Onset/Duration Of Symptoms: Days (1x day) Current Symptoms Are (Timing): Better Severity: Moderate Associated Symptoms: denies: Fever, Nausea, Vomiting, Diarrhea Additional Complaint(s): 28 year old female who was seen at the ED yesterday and found to have gallstones presents to the ED for an evaluation of abdominal pain. Patient was called back to return to the ED today, when there were equivocal findings of cholecystitis found by radiology today. Patient reports having 1x episode of abdominal pain this morning, but states that she feels well now. Otherwise, patient denies having fevers, nausea, vomiting, and diarrhea. PMD: None provided. Past Medical History Reviewed: Historical Data, Nursing Documentation, Vital Signs Vital Signs: Last Vital Signs Temp 98.3 F 08/02/18 15:54 Pulse 101 H 08/02/18 15:54 Resp 18 08/02/18 15:54 BP 99/66 L 08/02/18 15:54 Pulse Ox 99 08/02/18 15:54 SYLVIA Report Viewed: Yes - Medical History PMH: Migraine, Seizures - Surgical History Surgical History: No Surg Hx - Family History Family History: States: CAD (Father who had open heart surgery at 44) - Social History Current smoker - smoking cessation education provided: No Alcohol: None Drugs: Denies - Home Medications Home Medications: Ambulatory Orders Medication Instructions Recorded Naproxen Sodium [Aleve] 220 mg PO Q12 PRN 08/02/18 - Allergies Allergies/Adverse Reactions: Allergies Allergy/AdvReac Type Severity Reaction Status Date / Time No Known Allergies Allergy Verified 08/02/18 15:58 Review of Systems ROS Statement: Except As Marked, All Systems Reviewed And Found Negative Constitutional: Negative for: Fever Gastrointestinal: Negative for: Nausea, Vomiting, Abdominal Pain (1x episode this morning, resolved now), Diarrhea Physical Exam - Reviewed Nursing Documentation Reviewed: Yes Vital Signs Reviewed: Yes - Physical Exam Appears: Positive for: Well, Non-toxic, No Acute Distress Head Exam: Positive for: ATRAUMATIC, NORMOCEPHALIC Skin: Positive for: Normal Color, Warm, Dry Cardiovascular/Chest: Positive for: Regular Rate, Rhythm Respiratory: Positive for: Normal Breath Sounds Gastrointestinal/Abdominal: Positive for: Normal Exam, Soft. Negative for: Tenderness, Guarding, Rebound Neurologic/Psych: Positive for: Alert, Oriented (3x) - Laboratory Results Result Diagrams: 08/02/18 16:48 08/02/18 16:48 - ECG O2 Sat by Pulse Oximetry: 99 (RA) Pulse Ox Interpretation: Normal - Progress ED Course And Treament: TODAYS ULTRASOUND REPORT: IMPRESSION: Multiple gallstones are noted. No definite ultrasound evidence of acute cholecystitis. D/W DR. WORKMAN. LR 200ML PER HOUR ORDERED. D/W DR. BATES FOR ADMISSION D/W FINE WIRE DRAWER. D/W DR. AN Medical Decision Making Medical Decision Makin:00 Initial impression: 28 year old female with abdominal pain Old ED record's read and reviewed by me: WTC: 15 LFT elevation: total bilirubin: 1.7, AST: 350, ALT: 212 US abdomen read and reviewed from yesterday's ED visit: FINDINGS: LIVER: Measures cm in length. Normal echogenicity of the liver parenchyma. 17.4 GALLBLADDER: Cholelithiasis. Minimal mural thickening up to 4 mm.. Trace pericholecystic fluid. Negative sonographic Yang sign. Findings concerning but equivocal for acute cholecystitis. If clinically warranted consider further evaluation with radionuclide hepatobiliary scan. COMMON BILE DUCT: Measures mm. No stones. No dilatation. PANCREAS: 3 RIGHT KIDNEY: Measures 11.5 cm in length. Normal echogenicity. No calculus, mass, or hydronephrosis. AORTA: No aneurysmal dilatation. IVC: Unremarkable. OTHER FINDINGS: None . IMPRESSION: Mild thickening of gallbladder wall. Cholelithiasis. Trace pericholecystic fluid. Negative sonographic Yang sign pocket. Findings concerning but equivocal for acute cholecystitis. If clinically warranted consider further evaluation with radionuclide hepatobiliary scan. The preliminary findings for this examination were reported by [facility] at time. There is discordance of this report with the preliminary findings. Finding of pericholecystic fluid was not described in the preliminary report of this examination. Gallbladder wall thickening was not described in the preliminary report of this examination. Concern for acute cholecystitis was not described in the preliminary report of this examination. Initial plan: * US abdomen complete * CMP * lipase * upreg * CBC with diff * PT and PTT * urine culture * urinalysis * reevaluation Scribe Attestation: Documented byOctavia Freed, acting as a scribe for Riddhi Azar PA-C. Provider Scribe Attestation: All medical record entries made by the Scribe were at my direction and personally dictated by me. I have reviewed the chart and agree that the record accurately reflects my personal performance of the history, physical exam, medical decision making, and the department course for this patient. I have also personally directed, reviewed, and agree with the discharge instructions and disposition. Disposition - Clinical Impression Clinical Impression: Choledocholithiasis - Patient ED Disposition Is Patient to be Admitted: Yes - Disposition Disposition Time: 18:15 Condition: FAIR
[2018-08-02 16:56] LABS: BASO % 0.3 % (0.0-2.0); EOS # 0.1 K/uL (0.0-0.7); EOS % 0.6 % (0.0-4.0); HEMOGLOBIN 12.3 g/dL (12.0-16.0); LYMPH % 31.8 % (20.0-40.0); MEAN CELL VOLUME 89.7 fl (81.0-99.0); MEAN CORPUSCULAR HEMOGLOBIN 29.9 pg (27.0-31.0); MEAN CORPUSCULAR HGB CONC 33.3 g/dL (33.0-37.0); MEAN PLATELET VOLUME 8.6 fl (7.2-11.7); MONO # 0.6 K/uL (0.0-0.8); MONO % 6.7 % (0.0-10.0); NEUT # 5.7 K/uL (1.8-7.0); NEUT % 60.6 % (50.0-75.0); RBC 4.11 Mil/uL (3.80-5.20); WHITE BLOOD COUNT 9.3 K/uL (4.8-10.8)
[2018-08-02 17:06] LABS: INR 1.1; PROTHROMBIN TIME 12.6 Seconds (9.8-13.1)
[2018-08-02 17:08] LABS: PARTIAL THROMBOPLASTIN TIME 32.1 Seconds (25.6-37.1)
[2018-08-02 17:15] LABS: SQUAMOUS EPITHIAL 9 /hpf (0-5); URINE BACTERIA OCC (<OCC); URINE BILIRUBIN NEGATIVE (NEGATIVE); URINE BLOOD NEGATIVE (NEGATIVE); URINE CLARITY SLIGHTY-CLOUDY (Clear); URINE COLOR YELLOW (YELLOW); URINE GLUCOSE (UA) NEG (NEGATIVE); URINE LEUKOCYTE ESTERASE NEG Leu/uL (Negative); URINE PROTEIN NEGATIVE (NEGATIVE); URINE UROBILINOGEN 0.2-1.0 mg/dL (0.2-1.0)
[2018-08-02 17:37] LABS: ALB/GLOB RATIO 1.3 (1.0-2.1); ALBUMIN 3.9 g/dL (3.5-5.0); ALT/SGPT 444 U/L (9-52); AST/SGOT 327 U/L (14-36); BLOOD UREA NITROGEN 14 mg/dl (7-17); CALCIUM 8.9 mg/dL (8.4-10.2); GFR NON-AFRICAN AMERICAN > 60; LIPASE 1006 U/L (23-300)
--- NOTE | 2018-08-02 18:43 | US ---
Date of service: 08/02/2018 HISTORY: ruq abdominal pain COMPARISON: Comparison is made with 08/01/2018 TECHNIQUE: Sonographic evaluation of the right upper quadrant of the abdomen. FINDINGS: LIVER: Measures 15.6 cm in length. Normal echogenicity of the liver parenchyma. No mass. No intrahepatic bile duct dilatation. GALLBLADDER: Again noted are multiple gallstones. No ultrasound evidence of significant gallbladder wall thickening or pericholecystic fluid. COMMON BILE DUCT: Measures 4 mm. No stones. No dilatation. PANCREAS: Unremarkable as visualized. No mass. No ductal dilatation. RIGHT KIDNEY: Measures 11.2 x 4 x 3.6 cm in length. Normal echogenicity. No calculus, mass, or hydronephrosis. AORTA: No aneurysmal dilatation. IVC: Unremarkable. OTHER FINDINGS: None . IMPRESSION: Multiple gallstones are noted. No definite ultrasound evidence of acute cholecystitis.
[2018-08-02] MEDS: Lactated Ringer's 1,000 ML IV SCH (18:54)
[2018-08-02] MEDS ORDERED: Sodium Chloride 0.9% 1,000 ML IV SCH (19:00)
--- NOTE | 2018-08-02 19:21 | CP.PCM.HP ---
History of Present Illness - History of Present Illness History of Present Illness: 28 yo female with history of Pituitary Tumor and Seizure was seen yesterday because of left upper quadrant pain radiating to the epigastric region just before noon accompanied with one episode of vomiting. She felt it was gas pain but she had no relief when she took [place]. She was seen in the ER and was given IV Toradol and had relief. She was sent home improved and had no recurrence of the abdominal pain. However abdominal sonogram showed cholelithiasis with cholecystitis. Patient was called back and admitted for gallstone pancreatitis. Present on Admission - Present on Admission Any Indicators Present on Admission: No History of DVT/PE: No History of Uncontrolled Diabetes: No Urinary Catheter: No Decubitus Ulcer Present: No Review of Systems - Review of Systems All systems: reviewed and no additional remarkable complaints except (aside from those mentioned above, 12 point system review were negative by me) Past Patient History - Past Social History Smoking Status: Never Smoked Chewing Tobacco Use: No Cigar Use: No Alcohol: None Drugs: Denies - CARDIAC Hx Cardiac Disorders: No - PULMONARY Hx Respiratory Disorders: No - NEUROLOGICAL Hx Migraine: Yes Hx Seizures: Yes Other/Comment: Pituitary Tumor diagnosed last month - HEENT Hx HEENT Problems: No - RENAL Hx Chronic Kidney Disease: No - ENDOCRINE/METABOLIC Hx Endocrine Disorders: No Other/Comment: Pitutary tumor - HEMATOLOGICAL/ONCOLOGICAL Hx Blood Disorders: No - INTEGUMENTARY Hx Dermatological Problems: No - MUSCULOSKELETAL/RHEUMATOLOGICAL Hx Musculoskeletal Disorders: No - GASTROINTESTINAL Hx Gastrointestinal Disorders: No - GENITOURINARY/GYNECOLOGICAL Hx Genitourinary Disorders: No - PSYCHIATRIC Hx Psychophysiologic Disorder: No Hx Substance Use: No - SURGICAL HISTORY Hx Surgeries: No - ANESTHESIA Hx Anesthesia: No Meds Allergies/Adverse Reactions: Allergies Allergy/AdvReac Type Severity Reaction Status Date / Time No Known Allergies Allergy Verified 08/02/18 15:58 Physical Exam - Constitutional Appears: No Acute Distress - Head Exam Head Exam: ATRAUMATIC - Eye Exam Eye Exam: absent: Scleral icterus - ENT Exam ENT Exam: Mucous Membranes Moist - Neck Exam Neck exam: Negative for: Meningismus - Respiratory Exam Respiratory Exam: absent: Rales, Rhonchi, Wheezes, Respiratory Distress - Cardiovascular Exam Cardiovascular Exam: REGULAR RHYTHM, +S1, +S2 - GI/Abdominal Exam GI & Abdominal Exam: Soft. absent: Tenderness - Rectal Exam Rectal Exam: Deferred - Extremities Exam Extremities exam: Negative for: pedal edema - Back Exam Back exam: NORMAL INSPECTION - Neurological Exam Neurological exam: Alert, Oriented x3 - Psychiatric Exam Psychiatric exam: Normal Affect - Skin Skin Exam: Dry, Intact Results - Vital Signs Recent Vital Signs: Last Vital Signs Temp 98.3 F 08/02/18 15:54 Pulse 101 H 08/02/18 15:54 Resp 18 08/02/18 15:54 BP 99/66 L 08/02/18 15:54 Pulse Ox 99 08/02/18 18:15 - Labs Result Diagrams: 08/02/18 16:48 08/02/18 16:48 Labs: Laboratory Results - last 24 hr 08/02/18 08/02/18 08/02/18 16:48 16:48 16:48 WBC 9.3 RBC 4.11 Hgb 12.3 Hct 36.9 MCV 89.7 MCH 29.9 MCHC 33.3 RDW 13.0 Plt Count 257 MPV 8.6 Neut % (Auto) 60.6 Lymph % (Auto) 31.8 [place] % (Auto) 6.7 Eos % (Auto) 0.6 Baso % (Auto) 0.3 Neut # (Auto) 5.7 Lymph # (Auto) 3.0 [place] # (Auto) 0.6 Eos # (Auto) 0.1 Baso # (Auto) 0.0 PT 12.6 INR 1.1 APTT 32.1 Sodium 137 Potassium 3.6 Chloride 102 Carbon Dioxide 28 Anion Gap 11 BUN 14 Creatinine 0.6 L Est GFR ( Amer) > 60 Est GFR (Non-Af Amer) > 60 Random Glucose 79 Calcium 8.9 Total Bilirubin 2.1 H AST 327 H ALT 444 H D Alkaline Phosphatase 110 Total Protein 7.0 Albumin 3.9 Globulin 3.1 Albumin/Globulin Ratio 1.3 Lipase 1006 H Urine Color Urine Clarity Urine pH Ur Specific [place] Urine Protein Urine Glucose (UA) Urine Ketones Urine Blood Urine Nitrate Urine Bilirubin Urine Urobilinogen Ur Leukocyte Esterase Urine RBC (Auto) Urine Microscopic WBC Ur Squamous Epith Cells Urine Bacteria 08/02/18 16:48 WBC RBC Hgb Hct MCV MCH MCHC RDW Plt Count MPV Neut % (Auto) Lymph % (Auto) [place] % (Auto) Eos % (Auto) Baso % (Auto) Neut # (Auto) Lymph # (Auto) [place] # (Auto) Eos # (Auto) Baso # (Auto) PT INR APTT Sodium Potassium Chloride Carbon Dioxide Anion Gap BUN Creatinine Est GFR ( Amer) Est GFR (Non-Af Amer) Random Glucose Calcium Total Bilirubin AST ALT Alkaline Phosphatase Total Protein Albumin Globulin Albumin/Globulin Ratio Lipase Urine Color Yellow Urine Clarity Slighty-cloudy Urine pH 6.0 Ur Specific [place] 1.013 Urine Protein Negative Urine Glucose (UA) Neg Urine Ketones Negative Urine Blood Negative Urine Nitrate Negative Urine Bilirubin Negative Urine Urobilinogen 0.2-1.0 Ur Leukocyte Esterase Neg Urine RBC (Auto) 2 Urine Microscopic WBC 3 Ur Squamous Epith Cells 9 H Urine Bacteria Occ H Assessment & Plan - Assessment and Plan (Free Text) Assessment: 28 yo female with history of Pituitary Tumor and Seizure was seen yesterday because of left upper quadrant pain radiating to the epigastric region just before noon accompanied with one episode of vomiting. She felt it was gas pain but she had no relief when she took [place]. She was seen in the ER and was given IV Toradol and had relief. She was sent home improved and had no recurrence of the abdominal pain. However abdominal sonogram showed cholelithiasis with cholecystitis. Patient was called back and admitted for gallstone pancreatitis. 1. Gallstone Pancreatitis MRCP repeat LFTs and Lipase GI and surgical consult 2. Cholecystitis blood culture Zosyn 3.375gm IV q 6hrs 3. Pituitary Tumor patient is seeing a neurologist as outpatient 4. 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
--- NOTE | 2018-08-02 20:20 | CP.PCM.CON ---
History of Present Illness - History of Present Illness History of Present Illness: SURGERY NOTE FOR DR. VALENZUELA Reason: Cholelithiasis 28F presented to ED yesterday for RUQ pain. Patient states pain started yesterd ay and has now resolved. She was sent home yesterday and called back in for findings on ultrasound. She states her pain was associated with nausea or vomiting which have all resolved. She denies any fevers or chills, denies any change in bowel function. States she is afraid to eat as pain may return. She has a history of seizures and migraines and was recently 07/11/18 diagnosed with pituitary adenoma which she is having worked up outpatient. PMH: Pituitary adenoma PSH: denies Social: denies tobacco, denies alcohol and denies illicit drug use Allergies: NKDA Past Patient History - Past Social History Alcohol: None Drugs: Denies - CARDIAC Hx Cardiac Disorders: No - PULMONARY Hx Respiratory Disorders: No - NEUROLOGICAL Hx Migraine: Yes Hx Seizures: Yes - HEENT Hx HEENT Problems: No - RENAL Hx Chronic Kidney Disease: No - ENDOCRINE/METABOLIC Hx Endocrine Disorders: No Other/Comment: Pitutary tumor - HEMATOLOGICAL/ONCOLOGICAL Hx Blood Disorders: No - INTEGUMENTARY Hx Dermatological Problems: No - MUSCULOSKELETAL/RHEUMATOLOGICAL Hx Musculoskeletal Disorders: No - GASTROINTESTINAL Hx Gastrointestinal Disorders: No - GENITOURINARY/GYNECOLOGICAL Hx Genitourinary Disorders: No - PSYCHIATRIC Hx Psychophysiologic Disorder: No Hx Substance Use: No - SURGICAL HISTORY Hx Surgeries: No - ANESTHESIA Hx Anesthesia: No Meds Allergies/Adverse Reactions: Allergies Allergy/AdvReac Type Severity Reaction Status Date / Time No Known Allergies Allergy Verified 08/02/18 15:58 - Medications Medications: Current Medications Lactated Ringer's (Lactated Ringer's) 1,000 mls @ 200 mls/hr IV .Q5H [facility] Last Admin: 08/02/18 18:54 Dose: 200 mls/hr Sodium Chloride (Sodium Chloride 0.9%) 1,000 mls @ 100 mls/hr IV .Q10H [facility] Ketorolac Tromethamine (Toradol) 30 mg IVP Q6 PRN PRN Reason: Pain, moderate (4-7) Physical Exam - Constitutional Appears: Non-toxic, No Acute Distress - Respiratory Exam Respiratory Exam: Clear to Auscultation Bilateral, NORMAL BREATHING PATTERN - Cardiovascular Exam Cardiovascular Exam: REGULAR RHYTHM, +S1, +S2 - GI/Abdominal Exam GI & Abdominal Exam: Soft. absent: Distended, Firm, Guarding, Rebound, Rigid, Tenderness - Extremities Exam Extremities exam: Negative for: pedal edema, tenderness - Neurological Exam Neurological exam: Alert, Oriented x3 - Psychiatric Exam Psychiatric exam: Normal Affect, Normal Mood - Skin Skin Exam: Dry, Intact, Normal Color, Warm Results - Vital Signs Recent Vital Signs: Last Vital Signs Temp 98.3 F 08/02/18 15:54 Pulse 101 H 08/02/18 15:54 Resp 18 08/02/18 15:54 BP 99/66 L 08/02/18 15:54 Pulse Ox 99 08/02/18 19:47 - Labs Result Diagrams: 08/02/18 16:48 08/02/18 16:48 Labs: Laboratory Results - last 24 hr 08/02/18 08/02/18 08/02/18 16:48 16:48 16:48 WBC 9.3 RBC 4.11 Hgb 12.3 Hct 36.9 MCV 89.7 MCH 29.9 MCHC 33.3 RDW 13.0 Plt Count 257 MPV 8.6 Neut % (Auto) 60.6 Lymph % (Auto) 31.8 [place] % (Auto) 6.7 Eos % (Auto) 0.6 Baso % (Auto) 0.3 Neut # (Auto) 5.7 Lymph # (Auto) 3.0 [place] # (Auto) 0.6 Eos # (Auto) 0.1 Baso # (Auto) 0.0 PT 12.6 INR 1.1 APTT 32.1 Sodium 137 Potassium 3.6 Chloride 102 Carbon Dioxide 28 Anion Gap 11 BUN 14 Creatinine 0.6 L Est GFR ( Amer) > 60 Est GFR (Non-Af Amer) > 60 Random Glucose 79 Calcium 8.9 Total Bilirubin 2.1 H AST 327 H ALT 444 H D Alkaline Phosphatase 110 Total Protein 7.0 Albumin 3.9 Globulin 3.1 Albumin/Globulin Ratio 1.3 Lipase 1006 H Urine Color Urine Clarity Urine pH Ur Specific [place] Urine Protein Urine Glucose (UA) Urine Ketones Urine Blood Urine Nitrate Urine Bilirubin Urine Urobilinogen Ur Leukocyte Esterase Urine RBC (Auto) Urine Microscopic WBC Ur Squamous Epith Cells Urine Bacteria 08/02/18 16:48 WBC RBC Hgb Hct MCV MCH MCHC RDW Plt Count MPV Neut % (Auto) Lymph % (Auto) [place] % (Auto) Eos % (Auto) Baso % (Auto) Neut # (Auto) Lymph # (Auto) [place] # (Auto) Eos # (Auto) Baso # (Auto) PT INR APTT Sodium Potassium Chloride Carbon Dioxide Anion Gap BUN Creatinine Est GFR ( Amer) Est GFR (Non-Af Amer) Random Glucose Calcium Total Bilirubin AST ALT Alkaline Phosphatase Total Protein Albumin Globulin Albumin/Globulin Ratio Lipase Urine Color Yellow Urine Clarity Slighty-cloudy Urine pH 6.0 Ur Specific [place] 1.013 Urine Protein Negative Urine Glucose (UA) Neg Urine Ketones Negative Urine Blood Negative Urine Nitrate Negative Urine Bilirubin Negative Urine Urobilinogen 0.2-1.0 Ur Leukocyte Esterase Neg Urine RBC (Auto) 2 Urine Microscopic WBC 3 Ur Squamous Epith Cells 9 H Urine Bacteria Occ H Assessment & Plan - Assessment and Plan (Free Text) Assessment: 28F with gallstone pancreatitis Plan: NPO IVF Pain control Antibiotics MRCP pending for AM Further recs discuss with Dr. Hannah Kaba, PGY3
[2018-08-02] MEDS: Piperacillin/Tazobact 3.375 GM in Sodium Chloride 0.9% 100 ML IVPB SCH (22:23)
[2018-08-03] MEDS: Lactated Ringer's 1,000 ML IV SCH ×3 (03:39→16:11)
[2018-08-03] MEDS: Piperacillin/Tazobact 3.375 GM in Sodium Chloride 0.9% 100 ML IVPB SCH ×3 (03:39→16:16)
[2018-08-03 07:48] LABS: ALB/GLOB RATIO 1.1 (1.0-2.1); ALBUMIN 3.2 g/dL (3.5-5.0); ALT/SGPT 298 U/L (9-52); AST/SGOT 144 U/L (14-36); BASO % 0.3 % (0.0-2.0); BILIRUBIN,DIRECT 0.2 mg/ml (0.0-0.4); BLOOD UREA NITROGEN 14 mg/dl (7-17); CALCIUM 8.4 mg/dL (8.4-10.2); EOS # 0.1 K/uL (0.0-0.7); EOS % 1.2 % (0.0-4.0); GFR NON-AFRICAN AMERICAN > 60; HEMOGLOBIN 11.5 g/dL (12.0-16.0); LYMPH # 2.7 K/uL (1.0-4.3); LYMPH % 34.3 % (20.0-40.0); MEAN CELL VOLUME 92.3 fl (81.0-99.0); MEAN CORPUSCULAR HEMOGLOBIN 30.4 pg (27.0-31.0); MEAN PLATELET VOLUME 8.6 fl (7.2-11.7); MONO # 0.5 K/uL (0.0-0.8); MONO % 6.3 % (0.0-10.0); NEUT # 4.5 K/uL (1.8-7.0); NEUT % 57.9 % (50.0-75.0); RBC 3.76 Mil/uL (3.80-5.20); RED CELL DISTRIBUTION WIDTH 12.9 % (11.5-14.5); WHITE BLOOD COUNT 7.8 K/uL (4.8-10.8)
[2018-08-03 08:16] VITALS: RESP 20
--- NOTE | 2018-08-03 08:40 | CP.PCM.PN ---
Subjective - Date & Time of Evaluation Date of Evaluation: 08/03/18 Time of Evaluation: 06:10 - Subjective Subjective: Patient seen and examined. No acute events over night. Denies any abdominal pain. Denies Nausea/vomiting. Objective - Vital Signs/Intake and Output Vital Signs (last 24 hours): Temp Pulse Resp BP Pulse Ox 97.9 F 97 H 20 109/73 97 08/03/18 08:15 08/03/18 08:15 08/03/18 08:15 08/03/18 08:15 08/03/18 08:15 - Medications Medications: Current Medications Lactated Ringer's (Lactated Ringer's) 1,000 mls @ 200 mls/hr IV .Q5H [facility] Last Admin: 08/03/18 03:39 Dose: 200 mls/hr Sodium Chloride (Sodium Chloride 0.9%) 1,000 mls @ 100 mls/hr IV .Q10H [facility] Piperacillin Sod/Tazobactam (Sod 3.375 gm/ Sodium Chloride) 100 mls @ 100 mls/hr IVPB Q6 [facility]; Protocol Last Admin: 08/03/18 03:39 Dose: 100 mls/hr Ketorolac Tromethamine (Toradol) 30 mg IVP Q6 PRN PRN Reason: Pain, moderate (4-7) - Labs Labs: 08/03/18 05:30 08/03/18 05:30 PT 12.6 Seconds (9.8-13.1) 08/02/18 16:48 INR 1.1 08/02/18 16:48 APTT 32.1 Seconds (25.6-37.1) 08/02/18 16:48 - Constitutional Appears: No Acute Distress - Head Exam Head Exam: NORMOCEPHALIC - Eye Exam Eye Exam: EOMI, Normal appearance - ENT Exam ENT Exam: Mucous Membranes Moist - Respiratory Exam Respiratory Exam: NORMAL BREATHING PATTERN - Cardiovascular Exam Cardiovascular Exam: +S1, +S2 - GI/Abdominal Exam GI & Abdominal Exam: Soft. absent: Distended, Firm, Guarding, Rigid, Tenderness - Neurological Exam Neurological Exam: Alert, Awake, Oriented x3 - Skin Skin Exam: Intact, Warm Assessment and Plan - Assessment and Plan (Free Text) Assessment: 28F with gallstone pancreatitis Plan: NPO IVF ABx Anti-emetics prn F/u MRCP Further recs per Dr. Hannah Coornado PGY3
--- NOTE | 2018-08-03 13:19 | MRI ---
Date of service: 08/03/2018 PROCEDURE: Magnetic Resonance Cholangiopancreatography HISTORY: COMPARISON: None available. TECHNIQUE: Multiplanar, multisequence MR images of the abdomen were obtained, including heavily T2 weighted MRCP images of the biliary system. Rotating maximum intensity projection images of the biliary system were generated. FINDINGS: MRCP: Markedly limited evaluation due to motion artifact. The common bile duct is of a normal caliber. No evidence of choledocholithiasis. No intrahepatic biliary ductal dilatation. LIVER: Unremarkable. GALLBLADDER: Minimal dependent cholelithiasis without gallbladder wall thickening/edema or pericholecystic fluid. SPLEEN: Unremarkable. PANCREAS: Unremarkable. ADRENALS: Unremarkable. KIDNEYS: Unremarkable. AORTA: No aneurysm. ASCITES: None. OTHER FINDINGS: None. IMPRESSION: Cholelithiasis with tiny gallstone in the gallbladder neck. No gallbladder wall thickening/edema or pericholecystic fluid. Limited MRCP due to motion artifact. No gross intra or extrahepatic biliary ductal dilatation to suggest choledocholithiasis.
[2018-08-03 16:22] VITALS: BP 109/74; PULSE 82; TEMP 98; O2SAT 99
--- NOTE | 2018-08-03 17:09 | CP.PCM.DIS ---
Provider - Provider Date of Admission: 08/02/18 18:14 Attending physician: Paddy Mullen MD Primary care physician: None Consults: 08/02/18 18:59 General Surgery Consult Stat Comment: Consulting Provider: Jarod Young Consulting Physician: Jarod Young Reason for Consult: cholecystitis/cholelethiasis 08/02/18 19:00 Gastroenterology Consult Stat Comment: Consulting Provider: Tal Tolbert Consulting Physician: Tal Tolbert Reason for Consult: gallstone pancreatitis Time Spent in preparation of Discharge (in minutes): 20 Hospital Course - Lab Results Lab Results: Most Recent Lab Values WBC 7.8 K/uL (4.8-10.8) 08/03/18 05:30 RBC 3.76 Mil/uL (3.80-5.20) L 08/03/18 05:30 Hgb 11.5 g/dL (12.0-16.0) L 08/03/18 05:30 Hct 34.7 % (34.0-47.0) 08/03/18 05:30 MCV 92.3 fl (81.0-99.0) D 08/03/18 05:30 MCH 30.4 pg (27.0-31.0) 08/03/18 05:30 MCHC 33.0 g/dL (33.0-37.0) 08/03/18 05:30 RDW 12.9 % (11.5-14.5) 08/03/18 05:30 Plt Count 237 K/uL (130-400) 08/03/18 05:30 MPV 8.6 fl (7.2-11.7) 08/03/18 05:30 Neut % (Auto) 57.9 % (50.0-75.0) 08/03/18 05:30 Lymph % (Auto) 34.3 % (20.0-40.0) 08/03/18 05:30 [place] % (Auto) 6.3 % (0.0-10.0) 08/03/18 05:30 Eos % (Auto) 1.2 % (0.0-4.0) 08/03/18 05:30 Baso % (Auto) 0.3 % (0.0-2.0) 08/03/18 05:30 Neut # (Auto) 4.5 K/uL (1.8-7.0) 08/03/18 05:30 Lymph # (Auto) 2.7 K/uL (1.0-4.3) 08/03/18 05:30 [place] # (Auto) 0.5 K/uL (0.0-0.8) 08/03/18 05:30 Eos # (Auto) 0.1 K/uL (0.0-0.7) 08/03/18 05:30 Baso # (Auto) 0.0 K/uL (0.0-0.2) 08/03/18 05:30 PT 12.6 Seconds (9.8-13.1) 08/02/18 16:48 INR 1.1 08/02/18 16:48 APTT 32.1 Seconds (25.6-37.1) 08/02/18 16:48 Sodium 137 mmol/l (132-148) 08/03/18 05:30 Potassium 3.7 MMOL/L (3.6-5.0) 08/03/18 05:30 Chloride 105 mmol/L (98-107) 08/03/18 05:30 Carbon Dioxide 25 mmol/L (22-30) 08/03/18 05:30 Anion Gap 11 (10-20) 08/03/18 05:30 BUN 14 mg/dl (7-17) 08/03/18 05:30 Creatinine 0.7 mg/dl (0.7-1.2) 08/03/18 05:30 Est GFR ( Amer) > 60 08/03/18 05:30 Est GFR (Non-Af Amer) > 60 08/03/18 05:30 Random Glucose 66 mg/dL (65-105) 08/03/18 05:30 Calcium 8.4 mg/dL (8.4-10.2) 08/03/18 05:30 Total Bilirubin 2.1 mg/dl (0.2-1.3) H 08/03/18 05:30 Direct Bilirubin 0.2 mg/ml (0.0-0.4) 08/03/18 05:30 AST 144 U/L (14-36) H D 08/03/18 05:30 ALT 298 U/L (9-52) H D 08/03/18 05:30 Alkaline Phosphatase 82 U/L (38-126) 08/03/18 05:30 Total Protein 6.1 G/DL (6.3-8.2) L 08/03/18 05:30 Albumin 3.2 g/dL (3.5-5.0) L 08/03/18 05:30 Globulin 2.9 gm/dL (2.2-3.9) 08/03/18 05:30 Albumin/Globulin Ratio 1.1 (1.0-2.1) 08/03/18 05:30 Lipase 1006 U/L (23-300) H 08/02/18 16:48 Urine Color Yellow (YELLOW) 08/02/18 16:48 Urine Clarity Slighty-cloudy (Clear) 08/02/18 16:48 Urine pH 6.0 (5.0-8.0) 08/02/18 16:48 Ur Specific [place] 1.013 (1.003-1.030) 08/02/18 16:48 Urine Protein Negative mg/dL (NEGATIVE) 08/02/18 16:48 Urine Glucose (UA) Neg mg/dL (NEGATIVE) 08/02/18 16:48 Urine Ketones Negative mg/dL (NEGATIVE) 08/02/18 16:48 Urine Blood Negative (NEGATIVE) 08/02/18 16:48 Urine Nitrate Negative (NEGATIVE) 08/02/18 16:48 Urine Bilirubin Negative (NEGATIVE) 08/02/18 16:48 Urine Urobilinogen 0.2-1.0 mg/dL (0.2-1.0) 08/02/18 16:48 Ur Leukocyte Esterase Neg [place]/uL (Negative) 08/02/18 16:48 Urine RBC (Auto) 2 /hpf (0-3) 08/02/18 16:48 Urine Microscopic WBC 3 /hpf (0-5) 08/02/18 16:48 Ur Squamous Epith Cells 9 /hpf (0-5) H 08/02/18 16:48 Urine Bacteria Occ (<OCC) H 08/02/18 16:48 - Hospital Course Hospital Course: 28 y/o female with PMH pituitary adenoma was seen in ED on 08/01 with RUQ pain, elevated WBC 15 K . After pain resolved she was discharged home . Patient states She was called back to come to ER due to US findings of Cholelithiasis and possible Cholecysthitis. She has been pain free since ER visit 08/01 . Her blood work up 08/02 showed elevated Lipase 1006, AST/[id number] [place] 2.1 She states her pain was initially associated with nausea or vomiting which have all resolved and her WBC has normalized At present she denies pian , nausea, vomiting , denies any fever , chills , changes in bowel function or urinary symptoms. She was placed under observation in med/surg , started on IVF , Zosyn IV and MRCP ordered . GI and surgery consulted MRCP showed :Cholelithiasis with tiny gallstone in the gallbladder neck. No gallbladder wall thickening/edema or pericholecystic fluid. Patient is asymptomatic , tolerating PO diet and LFT-s trending down AST/ALT 144/298 At present patient has no Cholecystithis and no obstruction Discussed with surgery and GI awsinformed . Will discharge patient home. Recommended follow up with surgery for elective Cholecystectomy Advised to return to hospital if symptoms return or worsen. Dx Cholelithiasis Gallstone pancreatitis Cholecysthitis ruled out Discharge Exam - Head Exam Head Exam: ATRAUMATIC, NORMAL INSPECTION, NORMOCEPHALIC - Eye Exam Eye Exam: EOMI, Normal appearance, PERRL Pupil Exam: NORMAL ACCOMODATION - ENT Exam ENT Exam: Mucous Membranes Moist, Normal Exam - Neck Exam Neck exam: Full Rom, Normal Inspection - Respiratory Exam Respiratory Exam: Clear to PA & Lateral, NORMAL BREATHING PATTERN. absent: Rales, Rhonchi, Wheezes - Cardiovascular Exam Cardiovascular Exam: REGULAR RHYTHM, RRR, +S1, +S2. absent: JVD - GI/Abdominal Exam GI & Abdominal Exam: Normal Bowel Sounds, Soft, Unremarkable. absent: Distended, Guarding, Rebound, Tenderness - Rectal Exam Rectal Exam: Deferred - Extremities Exam Extremities exam: normal capillary refill, normal inspection, pedal pulses present - Back Exam Back exam: NORMAL INSPECTION - Neurological Exam Neurological exam: Alert, CN II-XII Intact, Oriented x3, Reflexes Normal - Psychiatric Exam Psychiatric exam: Normal Affect, Normal Mood - Skin Skin Exam: Dry, Intact, Normal Color, Warm Discharge Plan - Follow Up Plan Condition: STABLE Disposition: HOME/ ROUTINE Patient education suggested?: Yes Referrals: [facility] [place] [Outside] Jarod Young MD [Staff Provider] -
[2018-08-03] MEDS ORDERED: Simethicone 80 mg Chewtab PO SCH (22:00)
== END 2018-08-03 19:15 | disposition home or self-care (01) | DRG 204 ==
LOC: H.ER 15:32 → H.ERHOLD 18:14 → H.MEDSURG1 20:36
DX: K85.10 Biliary acute pancreatitis without necrosis or infection (principal); D35.2 Benign neoplasm of pituitary gland

== ENCOUNTER 2018-08-04 15:54 | Inpatient (IN) | payer OTHER ==
[2018-08-04 15:55] VITALS: BMI 33.6
[2018-08-04] MEDS ORDERED: Sodium Chloride 0.9% 1,000 ML IV STA (16:19)
--- NOTE | 2018-08-04 16:21 | ED PDOC ---
HPI: Abdomen Time Seen by Provider: 08/04/18 16:08 Chief Complaint (Nursing): Abdominal Pain Chief Complaint (Provider): abd pain History Per: Patient Onset/Duration Of Symptoms: Days (yesterday evening) Additional Complaint(s): Pt. with LUQ pain. radiates up to sternum and left ribs. Nausea, no vomit. Had 1 diarrhea nonbloody episode. Sent home from here yesterday. Was admitted for gall stones, elevated liver enzymes, and lipase elevated. Surgery and GI saw pt. on that visit and told to fu for elective surgery of gall bladder. No dysuria. Took advil today and helped the pain. Past Medical History Reviewed: Nursing Documentation, Vital Signs Vital Signs: Last Vital Signs Temp 98.2 F 08/04/18 16:03 Pulse 82 08/04/18 16:03 Resp 18 08/04/18 16:03 BP 119/67 08/04/18 16:03 Pulse Ox 98 08/04/18 16:03 - Medical History PMH: Gall Bladder Disease, Migraine, Seizures Denies: Chronic Kidney Disease - Family History Family History: States: CAD (Father who had open heart surgery at 44) - Home Medications Home Medications: Ambulatory Orders Medication Instructions Recorded Naproxen Sodium [Aleve] 220 mg PO Q12 PRN 08/02/18 - Allergies Allergies/Adverse Reactions: Allergies Allergy/AdvReac Type Severity Reaction Status Date / Time No Known Allergies Allergy Verified 08/04/18 16:02 Review of Systems ROS Statement: Except As Marked, All Systems Reviewed And Found Negative Gastrointestinal: Positive for: Nausea, Abdominal Pain, Diarrhea Physical Exam - Reviewed Nursing Documentation Reviewed: Yes Vital Signs Reviewed: Yes - Physical Exam Appears: Positive for: Non-toxic, No Acute Distress Head Exam: Positive for: ATRAUMATIC, NORMAL INSPECTION, NORMOCEPHALIC Skin: Positive for: Normal Color, Warm, DRY Eye Exam: Positive for: EOMI, Normal appearance, PERRL ENT: Positive for: Normal ENT Inspection Neck: Positive for: Normal, Painless ROM Cardiovascular/Chest: Positive for: Regular Rate, Rhythm Respiratory: Positive for: CNT, Normal Breath Sounds Gastrointestinal/Abdominal: Positive for: Soft, Tenderness (LUQ) Back: Positive for: Normal Inspection. Negative for: L CVA Tenderness, R CVA Tenderness Extremity: Positive for: Normal ROM Neurologic/Psych: Positive for: Alert, Oriented - Laboratory Results Result Diagrams: 08/04/18 17:12 08/04/18 17:12 Lab Results: lipase elevated; ast and alt similar to old - ECG O2 Sat by Pulse Oximetry: 98 Pulse Ox Interpretation: Normal - Progress ED Course And Treament: 181: Stable. AAOx3. Pain free. Surgery seeing pt. in the ER. 1856: Spoke with surgery. They saw pt. Dr. Rodriguez wants pt. to be admitted to his service. No antibiotics or or tx at this time. Disposition - Clinical Impression Clinical Impression: Gallstone pancreatitis - Patient ED Disposition Is Patient to be Admitted: Yes Counseled Patient/Family Regarding: Studies Performed, Diagnosis - Disposition Disposition Time: 18:57 Condition: FAIR - Pt Status Changed To: Hospital Disposition Of: Observation - POA Present On Arrival: None
[2018-08-04 17:25] LABS: BASO % 0.4 % (0.0-2.0); EOS % 0.2 % (0.0-4.0); HEMOGLOBIN 12.7 g/dL (12.0-16.0); LYMPH # 1.8 K/uL (1.0-4.3); LYMPH % 20.9 % (20.0-40.0); MEAN CELL VOLUME 88.9 fl (81.0-99.0); MEAN CORPUSCULAR HEMOGLOBIN 30.5 pg (27.0-31.0); MEAN CORPUSCULAR HGB CONC 34.3 g/dL (33.0-37.0); MEAN PLATELET VOLUME 8.5 fl (7.2-11.7); MONO # 0.4 K/uL (0.0-0.8); MONO % 5.1 % (0.0-10.0); NEUT # 6.2 K/uL (1.8-7.0); NEUT % 73.4 % (50.0-75.0); NRBC % 0.1 % (0.0-0.0); RBC 4.16 Mil/uL (3.80-5.20); RED CELL DISTRIBUTION WIDTH 12.9 % (11.5-14.5); WHITE BLOOD COUNT 8.4 K/uL (4.8-10.8)
[2018-08-04 17:38] LABS: ALB/GLOB RATIO 1.3 (1.0-2.1); ALT/SGPT 355 U/L (9-52); AST/SGOT 204 U/L (14-36); BLOOD UREA NITROGEN 10 mg/dl (7-17); GFR NON-AFRICAN AMERICAN > 60; LIPASE 1917 U/L (23-300)
--- NOTE | 2018-08-04 17:42 | US ---
Date of service: 08/04/2018 HISTORY: upper abd pain COMPARISON: MRCP dated 08/03/2018; abdominal ultrasound performed 08/02/2018 and 08/01/2018 TECHNIQUE: Sonographic evaluation of the right upper quadrant of the abdomen. FINDINGS: LIVER: Measures 15.7 cm in length. Normal echogenicity of the liver parenchyma. No mass. No intrahepatic bile duct dilatation. GALLBLADDER: Cholelithiasis and sludge with gallbladder wall thickening/edema. COMMON BILE DUCT: Measures 5 mm. No stones. No dilatation. PANCREAS: Unremarkable as visualized. No mass. No ductal dilatation. RIGHT KIDNEY: Measures 11.4 x 4.9 x 6.0 cm in length. Normal echogenicity. No calculus, mass, or hydronephrosis. AORTA: No aneurysmal dilatation. IVC: Unremarkable. OTHER FINDINGS: None . IMPRESSION: Cholelithiasis with gallbladder wall thickening/edema. Findings are equivocal for acute cholecystitis. Nuclear medicine hepatobiliary scan can be obtained to further evaluate patency of the cystic duct.
[2018-08-04 18:01] LABS: INR 1.2; PROTHROMBIN TIME 13.6 Seconds (9.8-13.1)
[2018-08-04 18:04] LABS: PARTIAL THROMBOPLASTIN TIME 36.7 Seconds (25.6-37.1)
[2018-08-04] MEDS ORDERED: oxyCODONE 5 mg Immediate Release Tab PO PRN (19:09)
[2018-08-04] MEDS: Lactated Ringer's 1,000 ML IV SCH ×2 (19:18→23:15)
--- NOTE | 2018-08-04 19:29 | CP.PCM.HP ---
History of Present Illness - History of Present Illness History of Present Illness: H&P for Dr. Young Admitted for: gallstone pancreatitis Pt is a 28F who presents with recurrent epigastric abdominal pain and nausea since last night. Patient was just recently discharged from [facility] yesterday after being admitted for gallstone pancreatitis, with cholelithiasis on US, but no choledocholithiasis on MRCP, improvement in labs and symptoms. Patient states that she ate a grilled cheese sandwhich and soup prior to leaving the hospital and then had severe epigastric pain and nausea last night, it did not improve, this AM and she noted scleral icterus, so she returned to the ER. Patient denies any emesis, diarrhea, chest pain, SOB, fevers, chills, or back pain. Patient's LFT's are all increased as well as her lipase and US showed cholelithiasis, mild wall thickening and edema. Patient has never had these symptoms prior to the past few days, states mother had gallbladder disease but did not have surgery for it. Patient also notes she has a pituitary tumor recently diagnosed and unilateral milky, non-spontaneous nipple discharge from the left breast, but no other breast symptoms, and no family history of breast cancer. PMH: pituitary tumor, seizures, migraines PSH: none ALL: NKDA Social: denies any tobacco, ETOH, or drug history Present on Admission - Present on Admission Any Indicators Present on Admission: No Review of Systems - Review of Systems All systems: reviewed and no additional remarkable complaints except (as per HPI) Past Patient History - Past Medical History & Family History Past Medical History?: Yes Pertinent Family History: Mother: gallbladder disease - Past Social History Smoking Status: Never Smoked Alcohol: None Drugs: Denies Home Situation {Lives}: With Family - CARDIAC Hx Cardiac Disorders: No - PULMONARY Hx Respiratory Disorders: No - NEUROLOGICAL Hx Migraine: Yes Hx Seizures: Yes Other/Comment: pituitary tumor - HEENT Hx HEENT Problems: No - RENAL Hx Chronic Kidney Disease: No - ENDOCRINE/METABOLIC Hx Endocrine Disorders: No - HEMATOLOGICAL/ONCOLOGICAL Hx Blood Disorders: No - INTEGUMENTARY Hx Dermatological Problems: No - MUSCULOSKELETAL/RHEUMATOLOGICAL Hx Musculoskeletal Disorders: No Hx Falls: No - GASTROINTESTINAL Hx Gall Bladder Disease: Yes Hx Pancreatitis: Yes - GENITOURINARY/GYNECOLOGICAL Hx Genitourinary Disorders: No - PSYCHIATRIC Hx Psychophysiologic Disorder: No Hx Substance Use: No - SURGICAL HISTORY Hx Surgeries: No - ANESTHESIA Hx Anesthesia: No Hx Anesthesia Reactions: No Hx Malignant Hyperthermia: No Meds Allergies/Adverse Reactions: Allergies Allergy/AdvReac Type Severity Reaction Status Date / Time No Known Allergies Allergy Verified 08/04/18 16:02 Physical Exam - Constitutional Appears: Well, Non-toxic, No Acute Distress - Head Exam Head Exam: ATRAUMATIC, NORMOCEPHALIC - Eye Exam Eye Exam: Normal appearance. absent: Conjunctival injection, Scleral icterus - ENT Exam ENT Exam: Mucous Membranes Moist, Normal Oropharynx - Respiratory Exam Respiratory Exam: NORMAL BREATHING PATTERN. absent: Accessory Muscle Use, Respiratory Distress - Cardiovascular Exam Cardiovascular Exam: RRR - GI/Abdominal Exam GI & Abdominal Exam: Soft, Tenderness (epigastric mild tenderness to palpation). absent: Distended, Rebound Additional comments: negative mott's sign - Extremities Exam Extremities exam: Positive for: pedal pulses present. Negative for: calf tender ness, pedal edema - Back Exam Back exam: absent: CVA tenderness (L), CVA tenderness (R) - Neurological Exam Neurological exam: Alert, Oriented x3 - Psychiatric Exam Psychiatric exam: Normal Affect, Normal Mood - Skin Skin Exam: Dry, Normal Color, Warm Results - Vital Signs Recent Vital Signs: Last Vital Signs Temp 98.2 F 08/04/18 16:03 Pulse 82 08/04/18 16:03 Resp 18 08/04/18 16:03 BP 119/67 08/04/18 16:03 Pulse Ox 98 08/04/18 18:57 - Labs Result Diagrams: 08/04/18 17:12 08/04/18 17:12 Labs: Laboratory Results - last 24 hr 08/04/18 08/04/18 08/04/18 17:12 17:12 17:12 WBC 8.4 RBC 4.16 Hgb 12.7 Hct 36.9 MCV 88.9 D MCH 30.5 MCHC 34.3 RDW 12.9 Plt Count 231 MPV 8.5 Neut % (Auto) 73.4 Lymph % (Auto) 20.9 [place] % (Auto) 5.1 Eos % (Auto) 0.2 Baso % (Auto) 0.4 Neut # (Auto) 6.2 Lymph # (Auto) 1.8 [place] # (Auto) 0.4 Eos # (Auto) 0.0 Baso # (Auto) 0.0 PT 13.6 H INR 1.2 APTT 36.7 Sodium 137 Potassium 3.6 Chloride 100 Carbon Dioxide 22 Anion Gap 19 BUN 10 Creatinine 0.5 L Est GFR ( Amer) > 60 Est GFR (Non-Af Amer) > 60 Random Glucose 67 Calcium 9.0 Total Bilirubin 3.4 H AST 204 H D ALT 355 H Alkaline Phosphatase 162 H D Troponin I < 0.0120 Total Protein 7.1 Albumin 4.0 Globulin 3.1 Albumin/Globulin Ratio 1.3 Lipase 1917 H Alcohol, Quantitative < 10 Assessment & Plan - Assessment and Plan (Free Text) Assessment: 28F with curently pituitary tumor of unknown origin and PMH of seizures and migraines with acute gallstone pancreatitis, possible choledocholithiasis, possible acute cholecystitis Plan: admit under observation F/U MRCP Trend labs NPO Agressive IVF hydration PRN pain and nausea medication incentive spirometer, SCD's Pepcid IV zosyn for possible cholecystitis intake and output measurement May consider GI consult pending results of MRCP May consider cholecystectomy this hospitalization pending results of tests and clinical course Discussed with Dr. Hannah Villavicencio, PGY2
[2018-08-04] MEDS ORDERED: Piperacillin/Tazobact 3.375 gm Inj IVPB ONE (19:46)
[2018-08-04] MEDS: Piperacillin/Tazobact 3.375 GM in Sodium Chloride 0.9% 100 ML IVPB SCH (19:50)
[2018-08-05] MEDS: Lactated Ringer's 1,000 ML IV SCH ×3 (00:05→06:19)
[2018-08-05] MEDS: Piperacillin/Tazobact 3.375 GM in Sodium Chloride 0.9% 100 ML IVPB SCH ×3 (03:36→18:49)
[2018-08-05 06:55] LABS: BASO % 0.3 % (0.0-2.0); EOS % 0.5 % (0.0-4.0); HEMOGLOBIN 11.7 g/dL (12.0-16.0); LYMPH # 2.4 K/uL (1.0-4.3); MEAN CELL VOLUME 89.6 fl (81.0-99.0); MEAN CORPUSCULAR HEMOGLOBIN 30.1 pg (27.0-31.0); MEAN CORPUSCULAR HGB CONC 33.6 g/dL (33.0-37.0); MEAN PLATELET VOLUME 8.6 fl (7.2-11.7); MONO # 0.4 K/uL (0.0-0.8); MONO % 4.6 % (0.0-10.0); NEUT # 5.6 K/uL (1.8-7.0); NEUT % 66.6 % (50.0-75.0); RBC 3.89 Mil/uL (3.80-5.20); RED CELL DISTRIBUTION WIDTH 13.2 % (11.5-14.5); WHITE BLOOD COUNT 8.5 K/uL (4.8-10.8)
[2018-08-05 06:59] LABS: ALB/GLOB RATIO 1.1 (1.0-2.1); ALBUMIN 3.3 g/dL (3.5-5.0); ALT/SGPT 254 U/L (9-52); AST/SGOT 100 U/L (14-36); BLOOD UREA NITROGEN 12 mg/dl (7-17); CALCIUM 8.3 mg/dL (8.4-10.2); GFR NON-AFRICAN AMERICAN > 60
--- NOTE | 2018-08-05 08:34 | CP.PCM.PN ---
Subjective - Date & Time of Evaluation Date of Evaluation: 08/05/18 Time of Evaluation: 08:32 - Subjective Subjective: SURGERY NOTE FOR DR. VALENZUELA 28F seen and examined at bedside. Patient states pain improved and localized to the RUQ and epigastric region. She current denies any nausea or vomiting, she denies any fevers or chills. Objective - Vital Signs/Intake and Output Vital Signs (last 24 hours): Temp Pulse Resp BP Pulse Ox 98.1 F 86 19 113/73 95 08/05/18 00:37 08/05/18 00:37 08/05/18 00:37 08/05/18 00:37 08/05/18 00:37 - Medications Medications: Current Medications Acetaminophen (Tylenol 325mg Tab) 650 mg PO Q6 PRN PRN Reason: Pain, moderate (4-7) Last Admin: 08/05/18 08:10 Dose: 650 mg Famotidine (Pepcid) 20 mg PO DAILY [facility] Last Admin: 08/05/18 08:11 Dose: 20 mg Lactated Ringer's (Lactated Ringer's) 1,000 mls @ 250 mls/hr IV .Q4H [facility] Last Admin: 08/05/18 06:19 Dose: 250 mls/hr Piperacillin Sod/Tazobactam (Sod 3.375 gm/ Sodium Chloride) 100 mls @ 100 mls/hr IVPB Q8H [facility]; Protocol Last Admin: 08/05/18 03:36 Dose: 100 mls/hr Ondansetron HCl (Zofran Inj) 4 mg IVP Q6 PRN PRN Reason: Nausea/Vomiting Oxycodone HCl (Oxycodone Immediate Release Tab) 5 mg PO Q6 PRN PRN Reason: Pain, severe (8-10) - Labs Labs: 08/05/18 06:32 08/05/18 06:32 PT 13.6 Seconds (9.8-13.1) H 08/04/18 17:12 INR 1.2 08/04/18 17:12 APTT 36.7 Seconds (25.6-37.1) 08/04/18 17:12 - Constitutional Appears: Non-toxic, No Acute Distress - Respiratory Exam Respiratory Exam: Clear to Ausculation Bilateral, NORMAL BREATHING PATTERN - Cardiovascular Exam Cardiovascular Exam: REGULAR RHYTHM, +S1, +S2 - GI/Abdominal Exam GI & Abdominal Exam: Soft, Tenderness (mildly in RUQ). absent: Distended, Firm, Guarding, Rigid, Rebound - Extremities Exam Extremities Exam: absent: Pedal Edema, Tenderness - Neurological Exam Neurological Exam: Alert, Awake - Skin Skin Exam: Dry, Intact, Warm Assessment and Plan - Assessment and Plan (Free Text) Assessment: 28F with gall stone pancreatitis Plan: NPO IVF Antibiotics MRCP pending GI consult Further recs discuss with Dr. Hannah Kaba, PGY3
--- NOTE | 2018-08-05 09:20 | CARD ---
APPROVED REPORT Date of service: 08/04/2018 EKG Measurement Heart [id number] <Conclusion> Normal sinus rhythm with sinus arrhythmia Low voltage QRS Borderline ECG
[2018-08-05] MEDS ORDERED: Dextrose 50% SYRINGE Inj (50 ml) ONE (10:05)
[2018-08-05] MEDS ORDERED: Dextrose 50% SYRINGE Inj (50 ml) IVP ONE (10:09)
[2018-08-05] MEDS: Dextrose 5%/0.9% NS 1,000 ML IV SCH ×2 (10:30→17:39)
--- NOTE | 2018-08-05 11:19 | RAD ---
Date of service: 08/04/2018 PROCEDURE: CHEST RADIOGRAPH, 1 VIEW HISTORY: pre-op eval COMPARISON: Chest radiograph dated 11/03/2017. FINDINGS: LUNGS: Clear. PLEURA: No pneumothorax or pleural fluid seen. CARDIOVASCULAR: No aortic atherosclerotic calcification present. Normal. OSSEOUS STRUCTURES: No significant abnormalities. VISUALIZED UPPER ABDOMEN: Normal. OTHER FINDINGS: None. IMPRESSION: No active disease.
[2018-08-06] MEDS: Dextrose 5%/0.9% NS 1,000 ML IV SCH ×2 (00:31→01:30)
[2018-08-06] MEDS: Piperacillin/Tazobact 3.375 GM in Sodium Chloride 0.9% 100 ML IVPB SCH ×3 (02:56→20:50)
[2018-08-06 06:44] LABS: BASO % 0.4 % (0.0-2.0); EOS # 0.1 K/uL (0.0-0.7); EOS % 0.9 % (0.0-4.0); HEMOGLOBIN 11.8 g/dL (12.0-16.0); LYMPH # 2.7 K/uL (1.0-4.3); LYMPH % 40.4 % (20.0-40.0); MEAN CORPUSCULAR HGB CONC 34.8 g/dL (33.0-37.0); MEAN PLATELET VOLUME 8.6 fl (7.2-11.7); MONO # 0.4 K/uL (0.0-0.8); MONO % 6.4 % (0.0-10.0); NEUT # 3.5 K/uL (1.8-7.0); NEUT % 51.9 % (50.0-75.0); NRBC % 0.2 % (0.0-0.0); RBC 3.81 Mil/uL (3.80-5.20); RED CELL DISTRIBUTION WIDTH 12.8 % (11.5-14.5); WHITE BLOOD COUNT 6.7 K/uL (4.8-10.8)
[2018-08-06 07:15] LABS: ALB/GLOB RATIO 1.1 (1.0-2.1); ALBUMIN 3.4 g/dL (3.5-5.0); ALT/SGPT 195 U/L (9-52); AST/SGOT 53 U/L (14-36); BLOOD UREA NITROGEN 3 mg/dl (7-17); CALCIUM 8.4 mg/dL (8.4-10.2); GFR NON-AFRICAN AMERICAN > 60; LIPASE 238 U/L (23-300)
[2018-08-06] MEDS ORDERED: Dextrose 5%/0.9% NS 1,000 ML IV SCH ×2 (08:29→20:00)
--- NOTE | 2018-08-06 08:31 | CP.PCM.PN ---
Subjective - Date & Time of Evaluation Date of Evaluation: 08/06/18 Time of Evaluation: 07:05 - Subjective Subjective: Patient seen and examined. No acute events over night. Reports feeling better. Denies abdominal pain. Objective - Vital Signs/Intake and Output Vital Signs (last 24 hours): Temp Pulse Resp BP Pulse Ox 97.9 F 74 20 114/75 98 08/06/18 07:59 08/06/18 07:59 08/06/18 07:59 08/06/18 07:59 08/06/18 07:59 Intake and Output: 08/06/18 08/06/18 06:59 18:59 Intake Total 1750 Balance 1750 - Medications Medications: Current Medications Acetaminophen (Tylenol 325mg Tab) 650 mg PO Q6 PRN PRN Reason: Pain, moderate (4-7) Last Admin: 08/05/18 14:13 Dose: 650 mg Famotidine (Pepcid) 20 mg PO DAILY [facility] Last Admin: 08/05/18 08:11 Dose: 20 mg Piperacillin Sod/Tazobactam (Sod 3.375 gm/ Sodium Chloride) 100 mls @ 100 mls/hr IVPB Q8H [facility]; Protocol Last Admin: 08/06/18 02:56 Dose: 100 mls/hr Dextrose/Sodium Chloride (Dextrose 5%/0.9% Ns 1000 Ml) 1,000 mls @ 100 mls/hr IV .Q10H [facility] Stop: 08/06/18 10:19 Ondansetron HCl (Zofran Inj) 4 mg IVP Q6 PRN PRN Reason: Nausea/Vomiting Oxycodone HCl (Oxycodone Immediate Release Tab) 5 mg PO Q6 PRN PRN Reason: Pain, severe (8-10) - Labs Labs: 08/06/18 05:45 08/06/18 05:45 PT 13.6 Seconds (9.8-13.1) H 08/04/18 17:12 INR 1.2 08/04/18 17:12 APTT 36.7 Seconds (25.6-37.1) 08/04/18 17:12 - Constitutional Appears: No Acute Distress - Head Exam Head Exam: NORMOCEPHALIC - Eye Exam Eye Exam: EOMI, Normal appearance - ENT Exam ENT Exam: Mucous Membranes Moist - Respiratory Exam Respiratory Exam: NORMAL BREATHING PATTERN - Cardiovascular Exam Cardiovascular Exam: +S1, +S2 - GI/Abdominal Exam GI & Abdominal Exam: Soft. absent: Firm, Guarding, Tenderness - Neurological Exam Neurological Exam: Alert, Awake, Oriented x3 - Psychiatric Exam Psychiatric exam: Normal Mood - Skin Skin Exam: Dry, Intact, Warm Assessment and Plan - Assessment and Plan (Free Text) Assessment: 28F with gallstone pancreatitis Plan: NPO IVF Consult GI, Dr. Tolbert, recs appreciated For ERCP in AM F/u ERCP results D/w Dr. Hannah Coronado PGY3
--- NOTE | 2018-08-06 09:16 | CP.PCM.CON ---
<Debi Villavicencio - Last Filed: 08/06/18 09:24> History of Present Illness - History of Present Illness History of Present Illness: GI consult note for Dr. Tolbert Pt is a 28F with episodic epigastric pain and nausea for 5 days. Patient was just recently discharged from [facility] on 08/03 after being admitted for gallstone pancreatitis, with cholelithiasis on US, but no choledocholithiasis on MRCP, improvement in labs and symptoms. Patient states that she ate a grilled cheese sandwich and soup prior to leaving the hospital and then had severe epigastric pain and nausea that night. It did not improve and she noted scleral icterus the next day, so she returned to the ER, had worsened lipase and transaminitis, and was admitted for recurrent gallstone pancreatitis. Repeat US showed cholelith iasis, mild wall thickening and edema, CBD wnl. Patient denies any emesis, diarrhea, chest pain, SOB, fevers, chills, or back pain. Patient has never had these symptoms prior to the past few days, states mother had gallbladder disease but did not have surgery for it. PMH: pituitary tumor, seizures, migraines PSH: none ALL: NKDA Social: denies any tobacco, ETOH, or drug history Review of Systems - Review of Systems All systems: reviewed and no additional remarkable complaints except (as per HPI) Past Patient History - Past Medical History & Family History Past Medical History?: Yes Pertinent Family History: mother: gallbladder disease - Past Social History Smoking Status: Never Smoked Alcohol: None Drugs: Denies Home Situation {Lives}: With Family - CARDIAC Hx Cardiac Disorders: No - PULMONARY Hx Respiratory Disorders: No - NEUROLOGICAL Hx Neurological Disorder: Yes Hx Seizures: Yes - HEENT Hx HEENT Problems: No - RENAL Hx Chronic Kidney Disease: No - ENDOCRINE/METABOLIC Hx Endocrine Disorders: Yes Other/Comment: pituitary tumor - HEMATOLOGICAL/ONCOLOGICAL Hx Blood Disorders: No Hx AIDS: No Hx Human Immunodeficiency Virus (HIV): No - INTEGUMENTARY Hx Dermatological Problems: No - MUSCULOSKELETAL/RHEUMATOLOGICAL Hx Musculoskeletal Disorders: No Hx Falls: No - GASTROINTESTINAL Hx Gastrointestinal Disorders: Yes Hx Gall Bladder Disease: Yes Hx Pancreatitis: Yes - GENITOURINARY/GYNECOLOGICAL Hx Genitourinary Disorders: No - PSYCHIATRIC Hx Psychophysiologic Disorder: No Hx Substance Use: No - SURGICAL HISTORY Hx Surgeries: No - ANESTHESIA Hx Anesthesia: No Hx Anesthesia Reactions: No Hx Malignant Hyperthermia: No Has any member of the family had a problem w/ anesthesia?: No Meds Allergies/Adverse Reactions: Allergies Allergy/AdvReac Type Severity Reaction Status Date / Time No Known Allergies Allergy Verified 08/04/18 16:02 - Medications Medications: Current Medications Acetaminophen (Tylenol 325mg Tab) 650 mg PO Q6 PRN PRN Reason: Pain, moderate (4-7) Last Admin: 08/06/18 09:03 Dose: 650 mg Famotidine (Pepcid) 20 mg PO DAILY [facility] Last Admin: 08/06/18 08:36 Dose: 20 mg Piperacillin Sod/Tazobactam (Sod 3.375 gm/ Sodium Chloride) 100 mls @ 100 mls/hr IVPB Q8H [facility]; Protocol Last Admin: 08/06/18 02:56 Dose: 100 mls/hr Dextrose/Sodium Chloride (Dextrose 5%/0.9% Ns 1000 Ml) 1,000 mls @ 100 mls/hr IV .Q10H [facility] Stop: 08/06/18 10:19 Last Admin: 08/06/18 08:40 Dose: 100 mls/hr Ondansetron HCl (Zofran Inj) 4 mg IVP Q6 PRN PRN Reason: Nausea/Vomiting Oxycodone HCl (Oxycodone Immediate Release Tab) 5 mg PO Q6 PRN PRN Reason: Pain, severe (8-10) Physical Exam - Constitutional Appears: Well, Non-toxic, No Acute Distress - Head Exam Head Exam: ATRAUMATIC, NORMOCEPHALIC - Eye Exam Eye Exam: Normal appearance. absent: Conjunctival injection, Scleral icterus - ENT Exam ENT Exam: Mucous Membranes Moist, Normal Oropharynx - Respiratory Exam Respiratory Exam: NORMAL BREATHING PATTERN. absent: Accessory Muscle Use, Respiratory Distress - Cardiovascular Exam Cardiovascular Exam: RRR - GI/Abdominal Exam GI & Abdominal Exam: Soft, Tenderness (mild epigastric/RUQ tenderness to palpation). absent: Distended, Rebound - Extremities Exam Extremities exam: Positive for: pedal pulses present. Negative for: calf tenderness, pedal edema - Neurological Exam Neurological exam: Alert, Oriented x3 - Psychiatric Exam Psychiatric exam: Normal Affect, Normal Mood - Skin Skin Exam: Dry, Normal Color, Warm Results - Vital Signs Recent Vital Signs: Last Vital Signs Temp 97.9 F 08/06/18 07:59 Pulse 74 08/06/18 07:59 Resp 20 08/06/18 07:59 BP 114/75 08/06/18 07:59 Pulse Ox 98 08/06/18 07:59 - Labs Result Diagrams: 08/06/18 05:45 08/06/18 05:45 Labs: Laboratory Results - last 24 hr 08/05/18 08/05/18 08/05/18 09:48 11:07 11:13 WBC RBC Hgb Hct MCV MCH MCHC RDW Plt Count MPV Neut % (Auto) Lymph % (Auto) Cherry % (Auto) Eos % (Auto) Baso % (Auto) Neut # (Auto) Lymph # (Auto) Cherry # (Auto) Eos # (Auto) Baso # (Auto) Sodium Potassium Chloride Carbon Dioxide Anion Gap BUN Creatinine Est GFR ( Amer) Est GFR (Non-Af Amer) POC Glucose (mg/dL) 38 L* 123 H Random Glucose Calcium Phosphorus Magnesium Total Bilirubin AST ALT Alkaline Phosphatase Total Protein Albumin Globulin Albumin/Globulin Ratio Lipase 296 08/05/18 08/06/18 08/06/18 23:10 05:45 05:45 WBC 6.7 RBC 3.81 Hgb 11.8 L Hct 33.9 L MCV 89.0 MCH 31.0 MCHC 34.8 RDW 12.8 Plt Count 250 MPV 8.6 Neut % (Auto) 51.9 Lymph % (Auto) 40.4 H Cherry % (Auto) 6.4 Eos % (Auto) 0.9 Baso % (Auto) 0.4 Neut # (Auto) 3.5 Lymph # (Auto) 2.7 Cherry # (Auto) 0.4 Eos # (Auto) 0.1 Baso # (Auto) 0.0 Sodium 138 Potassium 3.5 L Chloride 108 H Carbon Dioxide 24 Anion Gap 10 BUN 3 L Creatinine 0.6 L Est GFR ( Amer) > 60 Est GFR (Non-Af Amer) > 60 POC Glucose (mg/dL) 93 Random Glucose 101 Calcium 8.4 Phosphorus 2.8 Magnesium 1.6 Total Bilirubin 2.1 H AST 53 H D ALT 195 H D Alkaline Phosphatase 116 Total Protein 6.4 Albumin 3.4 L Globulin 3.0 Albumin/Globulin Ratio 1.1 Lipase 238 08/06/18 05:46 WBC RBC Hgb Hct MCV MCH MCHC RDW Plt Count MPV Neut % (Auto) Lymph % (Auto) Cherry % (Auto) Eos % (Auto) Baso % (Auto) Neut # (Auto) Lymph # (Auto) Cherry # (Auto) Eos # (Auto) Baso # (Auto) Sodium Potassium Chloride Carbon Dioxide Anion Gap BUN Creatinine Est GFR ( Amer) Est GFR (Non-Af Amer) POC Glucose (mg/dL) 96 Random Glucose Calcium Phosphorus Magnesium Total Bilirubin AST ALT Alkaline Phosphatase Total Protein Albumin Globulin Albumin/Globulin Ratio Lipase Assessment & Plan - Assessment and Plan (Free Text) Assessment: 28F with acute recurrent gallstone pancreatitis, possible choledocholithiasis Plan: F/U MRCP--MRCP last admission on 08/03 was poor study d/t motion artifact, LFT's are improved since admission but persistently elevated with continued concern for choledocholithiasis Trend CMP NPO IVF PRN pain and nausea medications Discussed with Dr. Tolbert, who agrees with above Debi Villavicencio, [email or web address] <Tal Tolbert - Last Filed: 08/06/18 18:36> Meds - Medications Medications: Current Medications Acetaminophen (Tylenol 325mg Tab) 650 mg PO Q6 PRN PRN Reason: Pain, moderate (4-7) Last Admin: 08/06/18 14:24 Dose: 650 mg Famotidine (Pepcid) 20 mg PO DAILY [facility] Last Admin: 08/06/18 08:36 Dose: 20 mg Dextrose/Sodium Chloride (Dextrose 5%/0.9% Ns 1000 Ml) 1,000 mls @ 100 mls/hr IV .Q10H [facility] Stop: 08/07/18 14:59 Piperacillin Sod/Tazobactam (Sod 3.375 gm/ Sodium Chloride) 100 mls @ 100 mls/hr IVPB Q8@0400,1200,2000 [facility]; Protocol Ondansetron HCl (Zofran Inj) 4 mg IVP Q6 PRN PRN Reason: Nausea/Vomiting Oxycodone HCl (Oxycodone Immediate Release Tab) 5 mg PO Q6 PRN PRN Reason: Pain, severe (8-10) Results - Vital Signs Recent Vital Signs: Last Vital Signs Temp 97.6 F 08/06/18 16:35 Pulse 60 08/06/18 16:35 Resp 18 08/06/18 16:35 BP 113/76 08/06/18 16:35 Pulse Ox 100 08/06/18 16:35 - Labs Result Diagrams: 08/06/18 05:45 08/06/18 05:45 Labs: Laboratory Results - last 24 hr 08/05/18 08/06/18 08/06/18 23:10 05:45 05:45 WBC 6.7 RBC 3.81 Hgb 11.8 L Hct 33.9 L MCV 89.0 MCH 31.0 MCHC 34.8 RDW 12.8 Plt Count 250 MPV 8.6 Neut % (Auto) 51.9 Lymph % (Auto) 40.4 H Cherry % (Auto) 6.4 Eos % (Auto) 0.9 Baso % (Auto) 0.4 Neut # (Auto) 3.5 Lymph # (Auto) 2.7 Cherry # (Auto) 0.4 Eos # (Auto) 0.1 Baso # (Auto) 0.0 Sodium 138 Potassium 3.5 L Chloride 108 H Carbon Dioxide 24 Anion Gap 10 BUN 3 L Creatinine 0.6 L Est GFR ( Amer) > 60 Est GFR (Non-Af Amer) > 60 POC Glucose (mg/dL) 93 Random Glucose 101 Calcium 8.4 Phosphorus 2.8 Magnesium 1.6 Total Bilirubin 2.1 H AST 53 H D ALT 195 H D Alkaline Phosphatase 116 Total Protein 6.4 Albumin 3.4 L Globulin 3.0 Albumin/Globulin Ratio 1.1 Lipase 238 08/06/18 08/06/18 08/06/18 05:46 11:03 15:44 WBC RBC Hgb Hct MCV MCH MCHC RDW Plt Count MPV Neut % (Auto) Lymph % (Auto) Cherry % (Auto) Eos % (Auto) Baso % (Auto) Neut # (Auto) Lymph # (Auto) Cherry # (Auto) Eos # (Auto) Baso # (Auto) Sodium Potassium Chloride Carbon Dioxide Anion Gap BUN Creatinine Est GFR ( Amer) Est GFR (Non-Af Amer) POC Glucose (mg/dL) 96 83 97 Random Glucose Calcium Phosphorus Magnesium Total Bilirubin AST ALT Alkaline Phosphatase Total Protein Albumin Globulin Albumin/Globulin Ratio Lipase Assessment & Plan - Assessment and Plan (Free Text) Plan: Patient with elevated Lipase on both admissions. Discussed with Dr. Young who is concerned clinically significant sludge or small stones may be present in CBD despite normal MRCP. ERCP scheduled for tomorrow.
[2018-08-06] MEDS ORDERED: Sodium Chloride 0.9% 0 ML IV ONE (10:53)
[2018-08-06] MEDS ORDERED: Gadodiamide 287 MG/ML VIAL (15ML) IV ONE (10:53)
[2018-08-06] MEDS ORDERED: Potassium Chloride 20 mEq ER Tab PO ONE (15:30)
[2018-08-06] MEDS: Dextrose 5%/0.45% NS 1,000 ML IV SCH (22:30)
[2018-08-07 06:32] LABS: ALB/GLOB RATIO 1.2 (1.0-2.1); ALBUMIN 3.4 g/dL (3.5-5.0); ALT/SGPT 148 U/L (9-52); AST/SGOT 39 U/L (14-36); BLOOD UREA NITROGEN 2 mg/dl (7-17); CALCIUM 8.6 mg/dL (8.4-10.2); GFR NON-AFRICAN AMERICAN > 60
[2018-08-07] MEDS ORDERED: Iohexol 240 (50 ml) ONE (07:31)
[2018-08-07] MEDS ORDERED: Glucagon Recombinant 1 mg Inj ONE (07:32)
[2018-08-07] MEDS ORDERED: Indomethacin 50 MG Suppository PR ONE (07:32)
[2018-08-07] MEDS ORDERED: Midazolam 2 MG/2 ML VIAL ONE (09:07)
[2018-08-07] MEDS ORDERED: Dexamethasone 4 mg/1 ml ONE ×2 (09:08→09:43)
[2018-08-07] MEDS ORDERED: Succinylcholine 200 mg/10 ml Inj IV ONE (09:08)
[2018-08-07] MEDS ORDERED: Propofol 10 mg/ml Inj (20 ML) ONE (09:08)
[2018-08-07] MEDS ORDERED: Desflurane Inhalation Anesthetic Liq (240 ml) ONE (09:20)
[2018-08-07] MEDS ORDERED: Lactated Ringer's 500 ML IV ONE (09:22)
[2018-08-07] MEDS ORDERED: Rocuronium 10 mg/ml (5 ml) ONE (09:42)
[2018-08-07] MEDS ORDERED: Lidocaine 4% (Laryng-O-Jet) Kit MM ONE (09:43)
[2018-08-07] MEDS ORDERED: Neostigmine 1:1000 (1 mg/ml) Inj ONE (09:43)
--- NOTE | 2018-08-07 12:00 | CP.PCM.PN ---
Subjective - Date & Time of Evaluation Date of Evaluation: 08/07/18 Time of Evaluation: 11:58 - Subjective Subjective: SURGERY NOTE FOR DR. VALENZUELA 28F seen and examined at bedside. Patient states pain is controlled, denies nausea, or vomiting. Denies fevers or chills. Refused ERCP this AM but has now agreed to it. Plan for ERCP this Afternoon Objective - Vital Signs/Intake and Output Vital Signs (last 24 hours): Temp Pulse Resp BP Pulse Ox 98.7 F 85 19 107/70 99 08/07/18 09:23 08/07/18 09:23 08/07/18 09:23 08/07/18 09:23 08/07/18 09:23 Intake and Output: 08/07/18 08/07/18 06:59 18:59 Intake Total 1200 Balance 1200 - Medications Medications: Current Medications Acetaminophen (Tylenol 325mg Tab) 650 mg PO Q6 PRN PRN Reason: Pain, moderate (4-7) Last Admin: 08/06/18 14:24 Dose: 650 mg Famotidine (Pepcid) 20 mg PO DAILY [facility] Last Admin: 08/06/18 08:36 Dose: 20 mg Dextrose/Sodium Chloride (Dextrose 5%/0.9% Ns 1000 Ml) 1,000 mls @ 100 mls/hr IV .Q10H [facility] Stop: 08/07/18 14:59 Last Admin: 08/06/18 21:23 Dose: Not Given Piperacillin Sod/Tazobactam (Sod 3.375 gm/ Sodium Chloride) 100 mls @ 100 mls/hr IVPB Q8@0400,1200,2000 [facility]; Protocol Last Admin: 08/06/18 20:50 Dose: 100 mls/hr Ondansetron HCl (Zofran Inj) 4 mg IVP Q6 PRN PRN Reason: Nausea/Vomiting Oxycodone HCl (Oxycodone Immediate Release Tab) 5 mg PO Q6 PRN PRN Reason: Pain, severe (8-10) - Labs Labs: 08/06/18 05:45 08/07/18 05:25 PT 13.6 Seconds (9.8-13.1) H 08/04/18 17:12 INR 1.2 08/04/18 17:12 APTT 36.7 Seconds (25.6-37.1) 08/04/18 17:12 - Constitutional Appears: Non-toxic, No Acute Distress - Respiratory Exam Respiratory Exam: Clear to Ausculation Bilateral, NORMAL BREATHING PATTERN - Cardiovascular Exam Cardiovascular Exam: REGULAR RHYTHM, +S1, +S2 - GI/Abdominal Exam GI & Abdominal Exam: Soft. absent: Distended, Firm, Guarding, Rigid, Tenderness, Rebound - Neurological Exam Neurological Exam: Alert, Awake - Skin Skin Exam: Dry, Intact, Normal Color, Warm Assessment and Plan - Assessment and Plan (Free Text) Assessment: 28F with gallstone pancreatitis and transaminitis Plan: NPO IVF Pending ERCP Refused ERCP this AM, but is now agreeable Will require OR after Further recs discuss with Dr. Hannah Kaba, PGY3
[2018-08-07] MEDS: Piperacillin/Tazobact 3.375 GM in Sodium Chloride 0.9% 100 ML IVPB SCH ×2 (12:45→20:38)
--- NOTE | 2018-08-07 14:42 | CP.PCM.PN ---
Subjective - Date & Time of Evaluation Date of Evaluation: 08/07/18 Time of Evaluation: 14:35 - Subjective Subjective: Patient currently without abdominal pain. Was unsure this morning about whether she wanted to proceed with ERCP. We had a prolonged discussion about the benefits as well as risks of the procedure. There is a risk of sludge or small stones in CBD after having 2 episodes of pancreatitis which an ERCP can clear. ERCP though does carry a 5-10% risk of pancreatitis. MRCP cannot rule out small stones or sludge. Objective - Vital Signs/Intake and Output Vital Signs (last 24 hours): Temp Pulse Resp BP Pulse Ox 98.7 F 85 19 107/70 99 08/07/18 09:23 08/07/18 09:23 08/07/18 09:23 08/07/18 09:23 08/07/18 09:23 Intake and Output: 08/07/18 08/07/18 06:59 18:59 Intake Total 1200 Balance 1200 - Medications Medications: Current Medications Acetaminophen (Tylenol 325mg Tab) 650 mg PO Q6 PRN PRN Reason: Pain, moderate (4-7) Last Admin: 08/06/18 14:24 Dose: 650 mg Famotidine (Pepcid) 20 mg PO DAILY [facility] Last Admin: 08/07/18 12:46 Dose: 20 mg Dextrose/Sodium Chloride (Dextrose 5%/0.9% Ns 1000 Ml) 1,000 mls @ 100 mls/hr IV .Q10H [facility] Stop: 08/07/18 14:59 Last Admin: 08/06/18 21:23 Dose: Not Given Piperacillin Sod/Tazobactam (Sod 3.375 gm/ Sodium Chloride) 100 mls @ 100 mls/hr IVPB Q8@0400,1200,2000 [facility]; Protocol Last Admin: 08/07/18 12:45 Dose: 100 mls/hr Ondansetron HCl (Zofran Inj) 4 mg IVP Q6 PRN PRN Reason: Nausea/Vomiting Oxycodone HCl (Oxycodone Immediate Release Tab) 5 mg PO Q6 PRN PRN Reason: Pain, severe (8-10) - Labs Labs: 08/06/18 05:45 08/07/18 05:25 PT 13.6 Seconds (9.8-13.1) H 08/04/18 17:12 INR 1.2 08/04/18 17:12 APTT 36.7 Seconds (25.6-37.1) 08/04/18 17:12 - Head Exam Head Exam: ATRAUMATIC - Eye Exam Eye Exam: Normal appearance - Neck Exam Neck Exam: Normal Inspection - Respiratory Exam Respiratory Exam: Clear to Ausculation Bilateral - Cardiovascular Exam Cardiovascular Exam: REGULAR RHYTHM - GI/Abdominal Exam GI & Abdominal Exam: Soft, Normal Bowel Sounds. absent: Tenderness Assessment and Plan (1) Gallstone pancreatitis Assessment & Plan: ERCP rescheduled for tomorrow 8 AM to evaluate and clear lower CBD. Patient now is agreeable. Status: Acute
[2018-08-07] MEDS ORDERED: Potassium Chl 20mEq & D5W 1,000 ML IV SCH (22:00)
[2018-08-08] MEDS: Piperacillin/Tazobact 3.375 GM in Sodium Chloride 0.9% 100 ML IVPB SCH ×3 (04:20→20:06)
[2018-08-08] MEDS ORDERED: Glucagon Recombinant 1 mg Inj ONE (07:25)
[2018-08-08] MEDS ORDERED: Indomethacin 50 MG Suppository PR ONE ×3 (07:26→10:00)
[2018-08-08] MEDS ORDERED: Iohexol 240 (50 ml) ONE (07:26)
[2018-08-08] MEDS ORDERED: Lactated Ringer's 500 ML IV ONE ×2 (07:49→09:05)
--- NOTE | 2018-08-08 08:25 | CP.PCM.PN ---
Subjective - Date & Time of Evaluation Date of Evaluation: 08/08/18 Time of Evaluation: 07:15 - Subjective Subjective: Patient seen and examined. No complaints. Passing flatus. For ERCP this AM. Objective - Vital Signs/Intake and Output Vital Signs (last 24 hours): Temp Pulse Resp BP Pulse Ox 98.9 F 79 15 119/77 98 08/08/18 07:51 08/08/18 07:51 08/08/18 07:51 08/08/18 07:51 08/08/18 07:51 - Medications Medications: Current Medications Acetaminophen (Tylenol 325mg Tab) 650 mg PO Q6 PRN PRN Reason: Pain, moderate (4-7) Last Admin: 08/06/18 14:24 Dose: 650 mg Famotidine (Pepcid) 20 mg PO DAILY [facility] Last Admin: 08/07/18 12:46 Dose: 20 mg Piperacillin Sod/Tazobactam (Sod 3.375 gm/ Sodium Chloride) 100 mls @ 100 mls/hr IVPB Q8@0400,1200,2000 [facility]; Protocol Last Admin: 08/08/18 04:20 Dose: 100 mls/hr Potassium Chloride/Dextrose (Potassium Chl 20 Meq In D5w) 1,000 mls @ 60 mls/hr IV .[id number] [facility] Stop: 08/08/18 15:26 Last Admin: 08/07/18 22:46 Dose: 60 mls/hr Ondansetron HCl (Zofran Inj) 4 mg IVP Q6 PRN PRN Reason: Nausea/Vomiting Oxycodone HCl (Oxycodone Immediate Release Tab) 5 mg PO Q6 PRN PRN Reason: Pain, severe (8-10) - Labs Labs: 08/06/18 05:45 08/07/18 05:25 PT 13.6 Seconds (9.8-13.1) H 08/04/18 17:12 INR 1.2 08/04/18 17:12 APTT 36.7 Seconds (25.6-37.1) 08/04/18 17:12 - Constitutional Appears: No Acute Distress - Head Exam Head Exam: NORMOCEPHALIC - Eye Exam Eye Exam: EOMI, Normal appearance - ENT Exam ENT Exam: Mucous Membranes Moist - Cardiovascular Exam Cardiovascular Exam: +S1, +S2 - GI/Abdominal Exam GI & Abdominal Exam: Soft. absent: Distended, Firm, Guarding, Rigid, Tenderness, Rebound - Neurological Exam Neurological Exam: Alert, Awake, Oriented x3 - Psychiatric Exam Psychiatric exam: Normal Mood - Skin Skin Exam: Dry, Intact, Warm Assessment and Plan - Assessment and Plan (Free Text) Assessment: 28F with gallstone pancreatitis Plan: NPO IVF Anti-emetic prn F/u ERCP results Further recs per Dr. Hannah Coronado PGY3
[2018-08-08] MEDS ORDERED: Midazolam 2 MG/2 ML VIAL ONE (09:43)
[2018-08-08] MEDS ORDERED: Potassium Ch 20mEq in D5-1/2NS 1,000 ML IV SCH (09:45)
[2018-08-08 14:33] LABS: ALB/GLOB RATIO 1.3 (1.0-2.1); ALBUMIN 3.8 g/dL (3.5-5.0); ALT/SGPT 136 U/L (9-52); AST/SGOT 51 U/L (14-36); BLOOD UREA NITROGEN 2 mg/dl (7-17); CALCIUM 8.8 mg/dL (8.4-10.2); GFR NON-AFRICAN AMERICAN > 60
[2018-08-08] MEDS ORDERED: Magnesium Sulfate 2 gm/50 ml 2 GM/50 ML BAG IVPB ONE (20:22)
[2018-08-08] MEDS ORDERED: Potassium Chloride 20 mEq ER Tab PO ONE (20:23)
[2018-08-08] MEDS ORDERED: Dextrose 5%/0.45% NS 1,000 ML IV SCH (20:30)
[2018-08-09] MEDS: Piperacillin/Tazobact 3.375 GM in Sodium Chloride 0.9% 100 ML IVPB SCH ×3 (03:01→20:07)
[2018-08-09] MEDS: Dextrose 5%/0.45% NS 1,000 ML IV SCH (05:51)
[2018-08-09 06:24] LABS: HEMOGLOBIN 11.7 g/dL (12.0-16.0); MEAN CELL VOLUME 89.3 fl (81.0-99.0); MEAN CORPUSCULAR HGB CONC 33.6 g/dL (33.0-37.0); RBC 3.91 Mil/uL (3.80-5.20); RED CELL DISTRIBUTION WIDTH 13.6 % (11.5-14.5); WHITE BLOOD COUNT 6.2 K/uL (4.8-10.8)
[2018-08-09 06:36] LABS: INR 1.2; PROTHROMBIN TIME 13.2 Seconds (9.8-13.1)
[2018-08-09 06:48] LABS: ALB/GLOB RATIO 1.2 (1.0-2.1); ALBUMIN 3.5 g/dL (3.5-5.0); ALT/SGPT 122 U/L (9-52); AMYLASE 107 U/L (30-110); AST/SGOT 52 U/L (14-36); BLOOD UREA NITROGEN 4 mg/dl (7-17); CALCIUM 8.7 mg/dL (8.4-10.2); GFR NON-AFRICAN AMERICAN > 60; LIPASE 482 U/L (23-300)
[2018-08-09] MEDS ORDERED: Rocuronium 10 mg/ml (5 ml) ONE (12:43)
[2018-08-09] MEDS ORDERED: Propofol 10 mg/ml Inj (20 ML) ONE (12:43)
[2018-08-09] MEDS ORDERED: Succinylcholine Chloride 20 mg/ml Syr (5 ml) IV ONE (12:47)
[2018-08-09] MEDS ORDERED: Lactated Ringer's 1,000 ML IV ONE (13:55)
[2018-08-09] MEDS ORDERED: Midazolam 2 MG/2 ML VIAL ONE (13:57)
[2018-08-09] MEDS ORDERED: cefTRIAXone (Rocephin) 1 gm Inj ONE (14:01)
[2018-08-09] MEDS ORDERED: Bupivacaine HCl 0.5% PF (30 ml) Inj ONE (14:02)
[2018-08-09] MEDS ORDERED: ePHEDrine 50 mg/ml Inj ONE (14:18)
[2018-08-09] MEDS ORDERED: Bupivacaine 0.5% Inj(30mL) INFIL ONE (14:20)
[2018-08-09] MEDS ORDERED: Sodium Chloride 0.9% 10 ML IV ONE (14:20)
[2018-08-09] MEDS ORDERED: Neostigmine 1:1000 (1 mg/ml) Inj ONE (14:40)
[2018-08-09] MEDS ORDERED: Dexamethasone 4 mg/1 ml ONE (14:51)
[2018-08-09] MEDS ORDERED: Sodium Chloride 0.9% 1,000 ML IV ONE (15:25)
[2018-08-09] MEDS ORDERED: HYDROmorphone 0.5 mg/0.5 ml ISec IVP PRN (15:25)
--- NOTE | 2018-08-09 15:30 | PCM.SURG1 ---
Surgeon's Initial Post Op Note - Surgeon's Notes Surgeon: Jarod Young MD Line Worker: Sesar PGY3 Pre-Operative Diagnosis: Acute Cholecystitis Operative Findings: inflammed gallbladder, cholelithiasis Post-Operative Diagnosis: Acute Cholecystitis Operation Performed: Laparoscopic Cholecystectomy Specimen/Specimens Removed: gallbladder Estimated Blood Loss: EBL {In ML}: 20 Date of Surgery/Procedure: 08/09/18 Time of Surgery/Procedure: 15:31
--- NOTE | 2018-08-09 18:44 | RAD ---
Date of service: 08/08/2018 PROCEDURE: Intraoperative Fluoroscopy. HISTORY: ERCP FINDINGS: Fluoroscopic assistance was provided for ERCP. Please refer to the operative report from [facility]. Total fluoroscopic time (continuous mode) utilized during the procedure 110.0 seconds. Total exam DLP: 19.79 (mGy).
[2018-08-09] MEDS: Sodium Chloride 0.9% 1,000 ML IV SCH (22:16)
[2018-08-10] MEDS: Dextrose 5%/0.45% NS 1,000 ML IV SCH (00:40)
[2018-08-10] MEDS: Sodium Chloride 0.9% 1,000 ML IV SCH (01:40)
[2018-08-10 06:44] LABS: BASO % 0.1 % (0.0-2.0); EOS % 0.4 % (0.0-4.0); HEMOGLOBIN 11.3 g/dL (12.0-16.0); LYMPH # 2.1 K/uL (1.0-4.3); LYMPH % 24.6 % (20.0-40.0); MEAN CORPUSCULAR HEMOGLOBIN 30.4 pg (27.0-31.0); MEAN PLATELET VOLUME 8.5 fl (7.2-11.7); MONO # 0.5 K/uL (0.0-0.8); MONO % 6.2 % (0.0-10.0); NEUT # 5.8 K/uL (1.8-7.0); NEUT % 68.7 % (50.0-75.0); NRBC % 0.1 % (0.0-0.0); RBC 3.71 Mil/uL (3.80-5.20); RED CELL DISTRIBUTION WIDTH 13.5 % (11.5-14.5); WHITE BLOOD COUNT 8.5 K/uL (4.8-10.8)
[2018-08-10 07:16] LABS: ALB/GLOB RATIO 1.2 (1.0-2.1); ALBUMIN 3.5 g/dL (3.5-5.0); ALT/SGPT 133 U/L (9-52); AST/SGOT 70 U/L (14-36); BLOOD UREA NITROGEN 5 mg/dl (7-17); CALCIUM 8.3 mg/dL (8.4-10.2); GFR NON-AFRICAN AMERICAN > 60
--- NOTE | 2018-08-10 07:56 | CP.PCM.DIS ---
Provider - Provider Date of Admission: 08/06/18 15:00 Attending physician: Jarod Young MD Consults: 08/06/18 09:36 Physician Consult Routine Comment: Consulting Provider: Tal Tolbert Consulting Physician: Tal Tolbert Reason for Consult: R/O choledocholithiasis Time Spent in preparation of Discharge (in minutes): 40 Hospital Course - Lab Results Lab Results: Most Recent Lab Values WBC 8.5 K/uL (4.8-10.8) 08/10/18 05:50 RBC 3.71 Mil/uL (3.80-5.20) L 08/10/18 05:50 Hgb 11.3 g/dL (12.0-16.0) L 08/10/18 05:50 Hct 34.2 % (34.0-47.0) 08/10/18 05:50 MCV 92.0 fl (81.0-99.0) D 08/10/18 05:50 MCH 30.4 pg (27.0-31.0) 08/10/18 05:50 MCHC 33.0 g/dL (33.0-37.0) 08/10/18 05:50 RDW 13.5 % (11.5-14.5) 08/10/18 05:50 Plt Count 241 K/uL (130-400) 08/10/18 05:50 MPV 8.5 fl (7.2-11.7) 08/10/18 05:50 Neut % (Auto) 68.7 % (50.0-75.0) 08/10/18 05:50 Lymph % (Auto) 24.6 % (20.0-40.0) 08/10/18 05:50 Kane % (Auto) 6.2 % (0.0-10.0) 08/10/18 05:50 Eos % (Auto) 0.4 % (0.0-4.0) 08/10/18 05:50 Baso % (Auto) 0.1 % (0.0-2.0) 08/10/18 05:50 Neut # (Auto) 5.8 K/uL (1.8-7.0) 08/10/18 05:50 Lymph # (Auto) 2.1 K/uL (1.0-4.3) 08/10/18 05:50 Kane # (Auto) 0.5 K/uL (0.0-0.8) 08/10/18 05:50 Eos # (Auto) 0.0 K/uL (0.0-0.7) 08/10/18 05:50 Baso # (Auto) 0.0 K/uL (0.0-0.2) 08/10/18 05:50 PT 13.2 Seconds (9.8-13.1) H 08/09/18 06:00 INR 1.2 08/09/18 06:00 APTT 33.0 Seconds (25.6-37.1) 08/09/18 06:00 Sodium 139 mmol/l (132-148) 08/10/18 05:50 Potassium 3.5 MMOL/L (3.6-5.0) L 08/10/18 05:50 Chloride 106 mmol/L (98-107) 08/10/18 05:50 Carbon Dioxide 24 mmol/L (22-30) 08/10/18 05:50 Anion Gap 13 (10-20) 08/10/18 05:50 BUN 5 mg/dl (7-17) L 08/10/18 05:50 Creatinine 0.7 mg/dl (0.7-1.2) 08/10/18 05:50 Est GFR ( Amer) > 60 08/10/18 05:50 Est GFR (Non-Af Amer) > 60 08/10/18 05:50 POC Glucose (mg/dL) 75 mg/dL (65-110) 08/10/18 05:10 Random Glucose 80 mg/dL (65-105) 08/10/18 05:50 Calcium 8.3 mg/dL (8.4-10.2) L 08/10/18 05:50 Phosphorus 3.9 mg/dl (2.5-4.5) 08/09/18 06:00 Magnesium 1.9 MG/DL (1.6-2.3) 08/09/18 06:00 Total Bilirubin 1.3 mg/dl (0.2-1.3) 08/10/18 05:50 AST 70 U/L (14-36) H D 08/10/18 05:50 ALT 133 U/L (9-52) H 08/10/18 05:50 Alkaline Phosphatase 87 U/L (38-126) 08/10/18 05:50 Troponin I < 0.0120 ng/mL (0.00-0.120) 08/04/18 17:12 Total Protein 6.3 G/DL (6.3-8.2) 08/10/18 05:50 Albumin 3.5 g/dL (3.5-5.0) 08/10/18 05:50 Globulin 2.8 gm/dL (2.2-3.9) 08/10/18 05:50 Albumin/Globulin Ratio 1.2 (1.0-2.1) 08/10/18 05:50 Amylase 107 U/L (30-110) 08/09/18 06:00 Lipase 482 U/L (23-300) H 08/09/18 06:00 Alcohol, Quantitative < 10 mg/dl (0-10) 08/04/18 17:12 - Hospital Course Hospital Course: 28F presents with gallstone pancreatitis. Hospital course included a negative MRCP and a negative ERCP. Patient LFTs were trended daily till safe level for an operation. Patient underwent laparoscopic cholecystectomy on 08/09/18. She tolerated the procedure well. Currently tolerating regular diet. She is ready for Discharge with 2 week follow up. Discharge Exam - Head Exam Head Exam: NORMOCEPHALIC - Respiratory Exam Respiratory Exam: Clear to PA & Lateral, NORMAL BREATHING PATTERN - Cardiovascular Exam Cardiovascular Exam: REGULAR RHYTHM, +S1, +S2 - GI/Abdominal Exam GI & Abdominal Exam: Soft, Tenderness (incisions CDI). absent: Distended, Firm, Guarding, Rebound, Rigid - Neurological Exam Neurological exam: Alert, Oriented x3 - Skin Skin Exam: Dry, Intact, Normal Color, Warm Discharge Plan - Follow Up Plan Condition: FAIR Disposition: HOME/ ROUTINE Instructions: Pancreatitis, Gallstones Additional Instructions: follow up with dr young 1 week Referrals: Tal Tolbert MD [Staff Provider] - Jarod Young MD [Staff Provider] -
[2018-08-10 08:40] VITALS: BP 123/82; PULSE 59; RESP 20; TEMP 97.8; O2SAT 97
--- NOTE | 2018-08-15 19:39 | OP ---
PROCEDURE DATE: 08/09/2018 PREOPERATIVE DIAGNOSIS: Acute cholecystitis. POSTOPERATIVE DIAGNOSIS: Acute cholecystitis. PROCEDURE: Laparoscopic cholecystectomy. SURGEON: Jarod Young MD, PhD TYPE OF ANESTHESIA: General endotracheal. DESCRIPTION OF PROCEDURE: The patient was brought to the operating room and placed on the operating room table in supine position. After smooth induction of general endotracheal anesthesia, Venodyne boots were placed on both legs, and prophylactic IV antibiotics were given. The entire abdomen was prepped and draped in the usual sterile fashion. The skin in the infraumbilical area was infiltrated with local anesthetic and incised in a vertical fashion using 15 blade. Incision was brought down to subcutaneous tissue using Bovie electrocautery. The linea alba was incised and the peritoneal cavity was accessed. The 0 Vicryl stay suture was placed on each side of the incised fascia and a Glenda trocar was inserted under direct visualization, the obturator was removed and the port was connected with a CO2 tank, generating pneumoperitoneum up to 15 mmHg. The patient's position was changed to reverse Trendelenburg with the left side down exposing the right upper quadrant. A 10-mm 30-degree laparoscopic video camera was inserted, and the abdomen was inspected. The gallbladder appeared to be distended and inflamed with thickened gallbladder wall and filled with stones. Three 5-mm ports were inserted in the right subcostal margin and through the lateral ports. The endograspers were inserted and the gallbladder was grasped from the fundus and the infundibulum and was retracted upwards and outwards exposing the triangle of Calot. The investing visceral peritoneum was incised and the cystic artery and cystic ducts were identified, doubly clipped and incised in sequential fashion. The gallbladder was detached from the liver bed using an Endo hook attached to the Bovie electrocautery. This was achieved without bile leak or significant bleed over the liver bed. This specimen was placed on Endo Bag, removed from the operating field and sent to Pathology, appropriately labeled for permanent sections. The abdomen was irrigated with copious amount of warm normal saline and there was no evidence of backbleeding or bile leak from the liver bed. Infraumbilical port was removed and the defect was closed with interrupted 0 Vicryl stitches. The integrity of the fascial closure was checked by inserting a 5-mm 30-degree laparoscopic video camera through the subxiphoid port. It was also confirmed that there was no evidence of backbleeding or bowel or omental entrapment. The remaining three 5-mm ports were removed under direct laparoscopic visualization, and there was no evidence of bleeding from the port sites. All skin incisions were closed with arturo and sterile dressings were applied. At the end of the surgery, the counts of the instruments, gauze, and needles were correct x2. The patient tolerated the surgery well and was transferred in stable condition to the recovery room. Jarod Young MD
== END 2018-08-10 11:48 | disposition home or self-care (01) | DRG 493 ==
LOC: H.ER 15:54 → H.ERHOLD 18:55 → UNDOADMOB 19:01 → H.MEDSURG1 21:00 → OBSVTOIN 08-06 15:00
PROVIDERS: ADMIT Specialist; ATTEND Specialist
PROC: 0F7D8DZ Dilation of Pancreatic Duct with Intraluminal Device, Via Natural or Artificial Opening Endoscopic (ICD-10-PCS; principal; 2018-08-08 07:45)
PROC: 0FT44ZZ Resection of Gallbladder, Percutaneous Endoscopic Approach (ICD-10-PCS; 2018-08-09)
DX: K80.00 Calculus of gallbladder with acute cholecystitis without obstruction (principal); K85.10 Biliary acute pancreatitis without necrosis or infection; R56.9 Unspecified convulsions; D49.7 Neoplasm of unspecified behavior of endocrine glands and other parts of nervous system; Z82.49 Family history of ischemic heart disease and other diseases of the circulatory system; G43.909 Migraine, unspecified, not intractable, without status migrainosus; R74.0 Nonspecific elevation of levels of transaminase and lactic acid dehydrogenase [LDH]; R74.8 Abnormal levels of other serum enzymes

== ENCOUNTER 2018-11-09 12:27 | Emergency (ER) | payer OTHER ==
[2018-11-09 12:27] VITALS: BMI 33.6
[2018-11-09 12:35] VITALS: O2SAT 99
--- NOTE | 2018-11-09 13:02 | ED PDOC ---
HPI:Nausea, Vomiting, Diarrhea Time Seen by Provider: 11/09/18 12:39 Chief Complaint (Nursing): GI Problem Chief Complaint (Provider): Vomiting History Per: Patient History/Exam Limitations: no limitations Onset/Duration Of Symptoms: Hrs Current Symptoms Are (Timing): Still Present Have you had recent travel within the past 21 days to any of the following countries: [place], [place], [place] or [place]?: No Context: Travel (recent trip to [place]) Quality Of Discomfort: Other (pain due to vomiting) Associated Symptoms: Nausea, Vomiting, Loss Of Appetite. denies: Back Pain, Chest Pain Additional History Per: Patient Additional Complaint(s): 28yo female, otherwise well, comes to ER reporting multiple episodes of vomiting since 9pm last night. Patient states she has been unable to tolerate PO intake, and has been feeling weak. Otherwise, no fever, chills, urine symptoms, or other complaints. Patient does report she recently travelled to [place]; also states her has cold symptoms but no vomiting. No additional complaints. PMD: Dr. Trevizo Abnormal Vaginal Bleeding: No Past Medical History Reviewed: Historical Data, Nursing Documentation, Vital Signs Vital Signs: Last Vital Signs Temp 97.9 F 11/09/18 12:32 Pulse 107 H 11/09/18 12:32 Resp 20 11/09/18 12:32 BP 87/52 L 11/09/18 12:32 Pulse Ox 99 11/09/18 12:32 - Medical History PMH: Gall Bladder Disease, Migraine, Pancreatitis, Seizures Denies: HIV, Chronic Kidney Disease - Surgical History Surgical History: Cholecystectomy - Family History Family History: States: CAD (Father who had open heart surgery at 44) - Home Medications Home Medications: Ambulatory Orders Medication Instructions Recorded Ibuprofen [Motrin Tab] 600 mg PO Q6H PRN #30 tab 08/10/18 Ibuprofen [Motrin Tab] 600 mg PO Q6H PRN #30 tab 08/10/18 Famotidine [Pepcid] 20 mg PO BID #20 tab 11/09/18 Ondansetron ODT [Zofran ODT] 4 mg PO Q8H PRN #20 odt 11/09/18 - Allergies Allergies/Adverse Reactions: Allergies Allergy/AdvReac Type Severity Reaction Status Date / Time No Known Allergies Allergy Verified 11/09/18 12:32 Review of Systems ROS Statement: Except As Marked, All Systems Reviewed And Found Negative Constitutional: Negative for: Fever, Chills Cardiovascular: Negative for: Chest Pain Respiratory: Negative for: Shortness of Breath Gastrointestinal: Positive for: Nausea, Vomiting, Abdominal Pain. Negative for: Diarrhea, Constipation Genitourinary Female: Negative for: Hematuria, Vaginal Discharge, Vaginal Bleeding Physical Exam - Reviewed Nursing Documentation Reviewed: Yes Vital Signs Reviewed: Yes - Physical Exam Appears: Positive for: Well, Non-toxic, No Acute Distress Head Exam: Positive for: ATRAUMATIC, NORMAL INSPECTION, NORMOCEPHALIC Skin: Positive for: Normal Color, Warm, DRY Eye Exam: Positive for: EOMI, Normal appearance, PERRL Neck: Positive for: Normal, Painless ROM Cardiovascular/Chest: Positive for: Tachycardia (regular rate) Respiratory: Positive for: CNT, Normal Breath Sounds Gastrointestinal/Abdominal: Positive for: Normal Exam, Soft. Negative for: Tenderness, Mass, Guarding, Rebound Back: Positive for: Normal Inspection. Negative for: L CVA Tenderness, R CVA Tenderness Extremity: Positive for: Normal ROM. Negative for: Pedal Edema, Deformity Neurological/Psych: Positive for: Awake, Alert, Normal Tone - Laboratory Results Result Diagrams: 11/09/18 13:30 11/09/18 13:30 - ECG O2 Sat by Pulse Oximetry: 99 (RA) Pulse Ox Interpretation: Normal - Progress Re-evaluation Time: 14:10 Condition: Improved Medical Decision Making Medical Decision Making: Impression: Abdominal pain, vomiting Plan: -- Labs -- Urinalysis -- IV Fluids Scribe Attestation: Documented by Hodan Mosher acting as a scribe for Danay Brown MD. Provider Attestation: All medical record entries made by the Scribe were at my direction and personally dictated by me. I have reviewed the chart and agree that the record accurately reflects my personal performance of the history, physical exam, medical decision making, and the department course for this patient. I have also personally directed, reviewed, and agree with the discharge instructions and disposition. Disposition - Clinical Impression Clinical Impression: Gastroenteritis - Disposition Referrals: Sandie Stevenson MD [Family Provider] - Disposition: Routine/Home Disposition Time: 15:00 Condition: IMPROVED Prescriptions: Famotidine [Pepcid] 20 mg PO BID #20 tab Ondansetron ODT [Zofran ODT] 4 mg PO Q8H PRN #20 odt PRN Reason: Nausea/Vomiting Instructions: Nausea and Vomiting, Adult Forms: [facility] ([place]ayan)
[2018-11-09] MEDS ORDERED: Sodium Chloride 0.9% 1,000 ML IV STA ×2 (13:14→14:44)
[2018-11-09 13:39] LABS: BASO % 0.2 % (0.0-2.0); EOS % 0.1 % (0.0-4.0); HEMOGLOBIN 13.4 g/dL (12.0-16.0); LYMPH # 0.6 K/uL (1.0-4.3); LYMPH % 7.9 % (20.0-40.0); MEAN CELL VOLUME 88.8 fl (81.0-99.0); MEAN CORPUSCULAR HEMOGLOBIN 29.9 pg (27.0-31.0); MEAN CORPUSCULAR HGB CONC 33.6 g/dL (33.0-37.0); MEAN PLATELET VOLUME 8.5 fl (7.2-11.7); MONO # 0.4 K/uL (0.0-0.8); MONO % 4.4 % (0.0-10.0); NEUT % 87.4 % (50.0-75.0); NRBC % 0.1 % (0.0-0.0); PLATELET COUNT 241 K/uL (130-400); RED CELL DISTRIBUTION WIDTH 13.6 % (11.5-14.5)
[2018-11-09 13:56] LABS: ALB/GLOB RATIO 1.3 (1.0-2.1); ALBUMIN 4.1 g/dL (3.5-5.0); ALT/SGPT 24 U/L (9-52); AST/SGOT 22 U/L (14-36); BLOOD UREA NITROGEN 15 mg/dl (7-17); CALCIUM 8.5 mg/dL (8.4-10.2); GFR NON-AFRICAN AMERICAN > 60; LIPASE 40 U/L (23-300)
[2018-11-09 14:00] LABS: SQUAMOUS EPITHIAL 29 /hpf (0-5); URINE BACTERIA RARE (<OCC); URINE BILIRUBIN NEGATIVE (NEGATIVE); URINE BLOOD NEGATIVE (NEGATIVE); URINE CLARITY CLOUDY (Clear); URINE COLOR AMBER (YELLOW); URINE GLUCOSE (UA) NEG (NEGATIVE); URINE LEUKOCYTE ESTERASE TRACE Leu/uL (Negative); URINE PROTEIN 30 mg/dL (NEGATIVE); URINE UROBILINOGEN 0.2-1.0 mg/dL (0.2-1.0)
[2018-11-09 14:16] LABS: LYMPHOCYTE 8 % (20-50); MONOCYTE 6 % (0-10); NEUTROPHIL 86 % (42-75); PLATELET ESTIMATE NORMAL (NORMAL); TOTAL CELLS COUNTED 100
[2018-11-09 14:36] VITALS: RESP 18
[2018-11-09 16:41] VITALS: BP 107/60
[2018-11-09 16:52] VITALS: PULSE 72; TEMP 98
== END 2018-11-09 16:51 | disposition home or self-care (01) ==
LOC: H.ER 12:27
DX: K52.9 Noninfective gastroenteritis and colitis, unspecified (principal)
CPT/HCPCS: 80053; 81003; 83690; 85025; 96361; 96374; 99284; J2405; J7030